=== PATIENT | male | born 1930 | race Caucasian/White ===

== ENCOUNTER → 2016-06-06 | Outpatient (CLI) | payer OTHER ==
[~2016-06-06] MED LIST: AMOX1TAB43 PO; ASPI-232 PO; ATEN-173 PO; FLM4 PO; MISCTAB88 PO; PANT40TA PO; PRAV20TA PO; PRT40 PO; SALI0.6510; ZCRT/40 PO; ZNT150 PO; ZNTT/150 PO
[2016-06-06 14:08] VITALS: BP 130/72; PULSE 55; TEMP 36.6; O2SAT 98
--- NOTE | 2016-06-06 15:29 | Radiation Oncology Follow-Up ---
Radiation Oncology Follow-Up Date of Visit Jun 06, 2016. 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 Briefly he is an 84-year-old male was initially seen in May 2012 with a rise in prostate-specific antigen from 5. 08/18/2009 to 8.89 in February 2012. He underwent ultrasound-guided biopsies with 3 biopsies positive in the right base for a Mobile grade of 3+4 with a Mobile grade 4 comprising 5% of the tumor burden. 3 biopsies were positive from the right mid gland for a Galindo grade of 3+3 thus a total of 6 of 20 biopsies were positive. His estimated gland size was between 50 and 60 g. At that time he was felt to be too large to consider prostate implant. Options were discussed including active surveillance for possible attempt to shrink his gland for consideration of prostate seed implant. The patient received a four-month Lupron injection on 06/21/2012. The patient underwent an arch study on 09/24/2012 for determining the probability of arch interference. The estimated gland volume was 45 g however the arch was tight and an implant was not recommended. On 05/01/2013 the patient underwent a repeat ultrasound-guided prostate biopsy. 2 biopsies from the right base were positive for adenocarcinoma Galindo grade of 3+3. One biopsy was positive from right mid gland for Mobile grade 3+3 with no Mobile 4 identified. A repeat arch study was performed on 05/22/2013 surprisingly is prostate volume was estimated at 64 g and begin his arch is appeared tight and an implant was not thought to be possible. Decision at that time was to continue with active surveillance. A repeat prostate-specific antigen following cessation of his Lupron suppression on 02/03/2014 showed a value of 9.7. This is not significantly different than his presenting prostate-specific antigen in February 2012 at 8.89. The patient however became concerned and presented to Dr. Elder's office and stated that he wanted to receive treatment. A four-month Lupron injection was given on March 05 and an arch study was scheduled for 2014. The most recent arch study showed a decrease in the volume of the prostate to 50 g. 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 I asked the patient to return today to discuss treatment options. I spent about 30 minutes in discussion with Mr. Russo. We reviewed the option of continued hormonal suppression and ultimately repeat arch studies and the possibility of a prostate seed implant at some point in the future. We also discussed the alternative option of continuing active surveillance. Given his age of 84 and his relatively low aggressive disease I suggested that he consider active surveillance. I told him that once his Lupron has worn off that we could arrange for a repeat prostate-specific antigen and follow it after that every 6 months. I indicated to him that with this follow-up schedule that we would be able to obtain a fairly good understanding of the growth rate of his cancer and based on this information determine whether to continue with active surveillance or possibly consider treatment at some point in the future. I told him that I felt it was very unlikely that he would of his prostate cancer and also very unlikely that he would have significant symptoms from progressive prostate cancer even if he were to live into his early to mid 90s. The patient felt comfortable with this decision to continue with active surveillance. With his consent therefore we contacted Dr. Elder's office and canceled the scheduled prostate seed implant from June. We will repeat his prostate-specific antigen in September and will see him in follow-up and continue with active surveillance. The patient therefore underwent a repeat prostate- specific antigen performed on 09/30/2014. This showed a prostate-specific antigen of 0.44. This undoubtedly is a persistent effect of his prostate- specific antigen suppression based on his Lupron injection. He received his most recent Lupron injection in February of this year for 4 months. Because of his age he is likely having persistent suppressive effects and thus a very responsive drop in prostate-specific antigen. Overall he continues to do extremely well. His AUA score remains excellent at 7. His EPIC-CP score was also excellent at 9. He denies any other bowel symptoms. He remains active and is feeling great with no significant symptoms of hormonal suppression. Interim History Patient returns today for 6 month follow-up. He had a recheck PSA at [facility] on 05/29/2016. The report was 10.30. The prior PSA 2015 was 10.200. He continues to have an excellent AUA score at 2. He completed and expanded prostate cancer index composite for clinical practice and gave a score of 1 of 12 in urinary incontinence symptoms. He gave a score of 1 of 12 in urinary irritation symptoms. He gave a score of 0 of 12 in bowel symptoms. He gave a score of 4 of 12 and sexual symptoms. He gave a score of 0 of 12 and hormonal vitality symptoms. His total was 6 of 60. Allergies Coded Allergies: No Known Allergies (Unverified , 05/14/12) Home Medications Scheduled Aspirin (Aspir-81), 1 TAB PO DAILY Atenolol (Tenormin), 25 MG PO DAILY Misc Natural Products (Osteo Bi-Flex Triple Stre), 1 TAB PO DAILY Simvastatin (Zocor), 40 MG PO QPM Tamsulosin HCl (Tamsulosin HCl), 0.4 MG PO DAILY Review of Systems Gastrointestinal: Symptoms: WNL Oral: Symptoms: No Problems Respiratory: Symptoms: WNL Urinary: Symptoms: WNL, Nocturia Comments: Nocturia x 1-2, See AUA & EPIC Skin: Other Skin Symptoms: N/A Physical Exam Vital Signs Date Time Temp Pulse Resp B/P Pulse Ox O2 Delivery O2 Flow Rate FiO2 06/06/16 14:08 36.6 55 14 130/72 98 Fatigue: None General Appearance: no apparent distress Eyes: normal inspection, EOMI ENT: normal ENT inspection, hearing grossly normal Neck: no adenopathy, thyroid normal Respiratory/Chest: lungs clear, no respiratory distress, no accessory muscle use Cardiovascular: regular rate, rhythm, no gallop, no murmur Extremities: no pedal edema Neurologic/Psychiatric: no motor/sensory deficits, alert, normal mood/affect Skin: warm/dry Laboratory Studies PSAs as reviewed above. Assessment & Plan Plan: Patient was seen also today by Dr. Rubin. We reviewed with him the most recent PSAs. Patient has been followed on active surveillance since 2013. He is satisfied to continue on active surveillance at this time with his PSA being stable levels. He did wish to continue follow-up with our office. We therefore ask him to return to our office in 6 months. An order was given to have a PSA obtained prior to his visit. This is more convenient for him tabs performed at [facility]. He may call our office if he has be questions or concerns in the interim. Total Time In Follow-Up I spent 20 minutes speaking to the patient and performing examination. I spent 15 minutes reviewing information and completing this note. Copy To Geraldo Villalta M.D.
== END | disposition home or self-care (01) ==
LOC: C.ONC 14:01
PROVIDERS: ATTEND Physician Assistant Medical
DX: Z08 Encounter for follow-up examination after completed treatment for malignant neoplasm (principal); Z92.3 Personal history of irradiation; Z85.46 Personal history of malignant neoplasm of prostate

== ENCOUNTER 2016-11-04 17:01 | Inpatient (IN) | payer OTHER ==
[~2016-11-04] VITALS: Ht 182.9 cm; Wt 68.6 kg
[~2016-11-04 17:01] MED LIST changes: -AMOX1TAB43 PO; -PANT40TA PO; -PRAV20TA PO; -PRT40 PO; -SALI0.6510; -ZNT150 PO; -ZNTT/150 PO
[2016-11-04] MEDS ORDERED: SODIUM CHLORIDE 0.9% 1000ML 1,000 ML IV STA (17:18)
[2016-11-04] MEDS ORDERED: XYLOCAINE 1%/SOD BICARB 20 ML VIAL INFIL STA (17:30)
[2016-11-04 17:44] LABS: BASO % 0.1 %; BASO ABS # 0.01 K/uL (0-0.2); COMPLETE YES; EOS % 0.1 %; HEMATOCRIT 33.1 % (42-52); IG% 0.8 %; LYMPH % 6.7 %; LYMPH ABS # 0.81 K/uL (1.2-3.4); MEAN CELL VOLUME 95.1 fL (80-100); MEAN CORPUSCULAR HEMOGLOBIN 31.9 pg (25-34); MEAN CORPUSCULAR HGB CONC 33.5 g/dl (32-36); MEAN PLATELET VOLUME 9.7 fL (7.4-10.4); MONO % 3.6 %; NEUT % 88.7 %; PLATELET COUNT 124 K/uL (130-400); RED BLOOD COUNT 3.48 M/uL (4.7-6.1)
[2016-11-04 17:52] LABS: PARTIAL THROMBOPLASTIN RATIO 0.7; PROTHROMBIN TIME (PATIENT) 10.5 SECONDS (9.0-12.0)
[2016-11-04 17:54] LABS: ISTAT CREATININE 1.4 mg/dl (0.6-1.3); ISTAT HEMOGLOBIN 10.5 g/dl (14.0-18.0); ISTAT IONIZED CALCIUM 1.28 mmol/l (1.12-1.32)
[2016-11-04] MEDS ORDERED: PANTOprazole INJ 80 MG in DEXTROSE 5% 100ML IV ONE (18:00)
[2016-11-04 18:08] LABS: ALT/SGPT 17 U/L (12-78); BLOOD UREA NITROGEN 53 mg/dl (7-18); BUN/CREATININE RATIO 40.5 (10-20); CALCIUM 8.8 mg/dl (8.5-10.1); CARBON DIOXIDE 22 mmol/L (21-32); CHLORIDE 110 mmol/L (98-107); GLUCOSE 131 mg/dl (70-99); SODIUM 142 mmol/L (136-145)
[2016-11-04 18:14] LABS: ALKALINE PHOSPHATASE 55 U/L (45-117); AST/SGOT 16 U/L (15-37); CKMB/CK RATIO 4.2 (0-3.0)
[2016-11-04] MEDS ORDERED: PANTOprazole INJ 40 MG in DEXTROSE 5% 100ML IV SCH (18:15)
--- NOTE | 2016-11-04 18:26 | EMERGENCY ROOM VISIT NOTE ---
History Report prepared by Dimas: Tania Palmer Under the Supervision of: Dr. Carloz Barth M.D. First contact with patient: 17:17 Chief Complaint: FALL Stated Complaint: FELL,BLOOD IN STOOL,CONCUSSION History of Present Illness The patient is an 86 year old male who presents to the Emergency Room with complaints of an episode of a fall occurring prior to arrival. The patient states that he was dizzy and nauseous last night. He states that this morning when he went to the bathroom his stool was extremely dark. The patient states that he decided to come to the hospital for it. He states as he was walking up the hill to his car from his boat that he lives on, he passed out. According to his son, he was disoriented and didn't remember taking his to the airport 5 days ago. The patient denies ever passing out before and remembering if there was a warning before passing out. The patient complains of a sore shoulder from the fall. The patient denies abdominal pain. Source of History: patient Onset: prior to arrival Position: other (global) Quality: other (global) Timing: other (episode) Associated Symptoms: + nausea, + melena, No abdominal pain Note: The patient complains of dizziness and a sore shoulder. The son notes he was disoriented. Review of Systems See HPI for pertinent positives & negatives. A total of 10 systems reviewed and were otherwise negative. 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 Social History Smoking Status: Never Smoker Alcohol Use: none Drug Use: none Marital Status: Housing Status: lives with significant other Occupation Status: unemployed Current/Historical Medications Scheduled Aspirin (Aspir-81), 1 TAB PO DAILY Atenolol (Tenormin), 25 MG PO DAILY Misc Natural Products (Osteo Bi-Flex Triple Stre), 1 TAB PO DAILY Simvastatin (Zocor), 40 MG PO QPM Tamsulosin HCl (Tamsulosin HCl), 0.4 MG PO QPM Allergies Coded Allergies: No Known Allergies (Unverified , 11/04/16) Physical Exam Vital Signs Date Time Temp Pulse Resp B/P (MAP) Pulse Ox O2 Delivery O2 Flow Rate FiO2 11/04/16 20:00 81 14 122/73 98 Room Air 11/04/16 19:42 Room Air 11/04/16 19:30 82 22 99 11/04/16 19:09 85 11/04/16 19:00 79 19 100 11/04/16 18:28 84 18 127/78 99 Room Air 11/04/16 17:40 Room Air 11/04/16 17:06 36.4 84 16 119/68 100 Room Air Physical Exam GENERAL: Patient is a healthy-appearing well-nourished HEAD: Normocephalic. Laceration superior to right eye 2.6 cm in length. EYES: Ocular movements intact pupils equal and react to light OROPHARYNX mucous membranes are moist no exudates present no erythema or edema present NECK: Supple no nuchal rigidity CHEST: Good equal expansion LUNGS: Clear and equal to auscultation CARDIAC: Normal S1 and S2 ABDOMEN: Soft nontender no guarding BACK: No CVA tenderness EXTREMITIES: No pain upon palpation normal muscle strength in all groups no clubbing cyanosis or edema. Skin avulsion to right elbow that is not suturable. NEURO: Patient is following commands and answering questions appropriately. Alert and oriented x3 Cranial Nerves 2-12 grossly intact Medical Decision & Procedures ER Provider Diagnostic Interpretation: Radiology results as stated below per my review and radiologist interpretation: MAXILLOFACIAL CT CT DOSE: HISTORY: Pt c/o Rt facial pain TECHNIQUE: Multiaxial CT images of the maxillofacial region were performed and reformatted in the coronal plane without the use of contrast. A dose lowering technique was utilized adhering to the principles of ALARA. COMPARISON: None. FINDINGS: The visualized cervical spine, skull base, zygomatic arches, mandible, left orbital floor, and lamina papyracea are intact. No fractures within the nasal bones. The globes and retrobulbar fat are intact. Right periorbital soft tissue swelling. Focal subcutaneous calcification within the left infraorbital location. There is hemorrhage within the right maxillary sinus. Retention cyst within the left maxillary sinus. A few opacified ethmoid air cells. Nondisplaced right orbital floor fracture. Trace extraconal gas on the right. No evidence for herniation of the intraorbital contents. IMPRESSION: Nondisplaced right orbital floor fracture. Right periorbital soft tissue swelling at Electronically signed by: Oh Pineda M.D. 11/04/2016 6:33 PM Dictated Date/Time: 11/04/2016 6:[address] CT DOSE: 910.87 mGy.cm HISTORY: Pt c/o syncopal episode TECHNIQUE: Multiaxial CT images of the head were performed without the use of intravenous contrast. Automated exposure control was utilized for this study. A dose lowering technique was utilized adhering to the principles of ALARA. Comparison: None. Findings: The mastoid air cells are clear. A few partially opacified ethmoid air cells. Mild motion artifact. The calvarium and skull base are intact. The ventricles and sulci are within normal limits. There is no mass, hematoma, midline shift, or acute infarct. 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 Mild microvascular ischemic changes. Impression: Mild motion artifact. No definite acute intracranial abnormality. Electronically signed by: Oh Pineda M.D. 11/04/2016 6:29 PM Dictated Date/Time: 11/04/2016 6:26 PM RIGHT SHOULDER 2 VIEWS HISTORY: Pt c/o Rt shoulder pain COMPARISON: None. FINDINGS: There is no fracture or dislocation. The right clavicle is intact. Focal swelling superior to the AC joint may be due to chronic rotator cuff injury. No radiopaque foreign bodies. IMPRESSION: No fracture or dislocation within the right shoulder. Electronically signed by: Oh Pineda M.D. 11/04/2016 6:35 PM Dictated Date/Time: 11/04/2016 6:34 PM CHEST ONE VIEW PORTABLE HISTORY: Pt c/o fall COMPARISON: None. FINDINGS: The lungs are clear. Cardiac silhouette is normal in size. No pleural effusions. No pneumothorax. IMPRESSION: No acute process. Electronically signed by: Oh Pineda M.D. 11/04/2016 6:36 PM Dictated Date/Time: 11/04/2016 6:35 PM Laboratory Results Test 11/04/16 17:29 11/04/16 17:41 Prothrombin Time 10.5 SECONDS (9.0-12.0) Prothromb Time International Ratio 1.0 (0.9-1.1) Activated Partial Thromboplast Time 19.4 SECONDS (21.0-31.0) Partial Thromboplastin Ratio 0.7 Total Bilirubin 0.4 mg/dl (0.2-1) Direct Bilirubin 0.1 mg/dl (0-0.2) Aspartate Amino Transf (AST/SGOT) 16 U/L (15-37) Alanine Aminotransferase (ALT/SGPT) 17 U/L (12-78) Alkaline Phosphatase 55 U/L (45-117) Total Protein 6.7 gm/dl (6.4-8.2) Albumin 3.6 gm/dl (3.4-5.0) Lipase 153 U/L (73-393) Bedside Hemoglobin 10.5 g/dl (14.0-18.0) Bedside Hematocrit 31 % (42-52) Bedside Sodium 142 mEq/L (135-144) Bedside Potassium 4.0 mEq/L (3.3-5.0) Bedside Chloride 107 mEq/L (101-112) Bedside Total CO2 22 mEq/l (24-31) Bedside Blood Urea Nitrogen 48 mg/dl (7-18) Bedside Creatinine 1.4 mg/dl (0.6-1.3) Bedside Glucose (other) 134 mg/dl (70-99) Bedside Ionized Calcium (Windy) 1.28 mmol/l (1.12-1.32) Labs reviewed by ED physician. Medications Administered Medications (Trade) Dose Ordered Sig/William Route Start Time Stop Time Status Last Admin Dose Admin Sodium Chloride 1,000 ml @ 999 mls/hr Q1H1M STAT IV 11/04/16 17:18 11/04/16 18:18 DC 11/04/16 17:47 999 MLS/HR Pantoprazole Sodium (Protonix IV Bolus/Drip) 1 ea NOW STAT IV 11/04/16 17:44 11/04/16 17:45 DC 11/04/16 18:27 1 EA Pantoprazole Sodium 80 mg/ Dextrose 120 ml @ 480 mls/hr NOW ONCE IV 11/04/16 18:00 11/04/16 18:14 DC 11/04/16 18:26 480 MLS/HR Pantoprazole Sodium 40 mg/ Dextrose 100 ml @ 20 mls/hr Q5H IV 11/04/16 18:15 11/04/16 23:14 DC 11/04/16 18:27 20 MLS/HR Diphtheria/ Pertussis/Tetanus Vacc (Adacel Inj) 0.5 ml ONCE ONCE IM. 11/04/16 19:30 11/04/16 19:31 DC 11/04/16 20:07 0.5 ML Procedure Location: right eye Total length: 2.6 cm Complexity: simple linear Verbal consent was obtained after the risks and benefits were explained, including but not limited to bleeding, scarring, infection, pain, and bone/joint /nerve damage. At this time, the risks of the procedure are less than the risks of NOT performing the procedure. A time out was taken and the correct patient and site identified. The skin was prepped with betadine. The target area was anesthetized with 4 ml of 1% lidocaine without epinephrine. Copious irrigation was performed using 500 cc normal saline. The skin was re-prepped with betadine and a sterile field set. The wound was explored for foreign bodies and none found. Examination revealed no injury to deep structures such as tendons, bone, or significant blood vessels. Debridement was not performed. The wound edges were approximated using 2, 5-0 simple interrupted nylon sutures. Hemostasis and excellent approximation was achieved. Antibacterial ointment and a sterile dressing applied. Detailed wound care instructions and signs and symptoms of infection reviewed with the patient. No complications and the patient tolerated the procedure well. ECG Indication: syncope Rate (beats per minute): 82 Rhythm: normal sinus Findings: no acute ischemic change, left axis deviation ED Course 1718: Ordered NSS 1000 ml @ 999 mls/hr IV. 1720: Past medical records reviewed. The patient was evaluated in room B12B. A complete history and physical examination was performed. 1730: Ordered Lidocaine HCl 20 ml INFIL. 1744: Ordered Pantoprazole Sodium 1 ea IV. 1800: Ordered Pantoprazole Sodium 80 mg/ Dextrose 120 ml @ 480 mls/hr IV. 1815: Ordered Pantoprazole Sodium 40 mg/ Dextrose 100 ml @ 20 mls/hr IV. 1928: I discussed the patient's case with Dr. Marion, he has agreed to evaluate the patient for further management and care. 1930: Ordered Adacel Inj 0.5 ml IM. Medical Decision Etiologies such as diverticulosis, AVM, coagulopathy, colitis, inflammatory bowel disease, malignancy, Malinda-Wilder tear, esophagitis, peptic ulcer disease , variceal bleed, gastritis, epistaxis, fissure, hemorrhoids, as well as others were entertained. This is an 86-year-old male who presents emergency department complaining of syncopal episode. The patient is also complaining of black tarry stools. He is heme positive on examination. For this reason he was started on Protonix bolus and drip. The patient had facial lacerations were repaired as above. He does have an orbital floor fracture however has no evidence of entrapment of the muscle. He has good range of motion of his eye. Based on these findings as well as the syncope in relation to a GI bleed I felt that the patient would benefit from an admission. I did discuss the case with the hospitalist staff who agreed to treat the patient. Medication Reconcilliation Current Medication List: was personally reviewed by me Blood Pressure Screening Patient's blood pressure: Normal blood pressure Blood pressure disposition: Did not require urgent referral Consults Time Called: 1919 Consulting Physician: Dr. Marion Returned Call: 1927 I discussed the patient's case with Dr. Marion, he has agreed to evaluate the patient for further management and care. Impression Primary Impression: GI bleed Additional Impressions: Syncope Facial fracture Scribe Attestation The scribe's documentation has been prepared under my direction and personally reviewed by me in its entirety. I confirm that the note above accurately reflects all work, treatment, procedures, and medical decision making performed by me. Departure Information Dispostion Being Evaluated By Hospitalist Referrals Geraldo Villalta M.D. (PCP) Patient Instructions My [facility] Problem Qualifiers Primary Impression: GI bleed GI bleed type/associated pathology: unspecified gastrointestinal hemorrhage type Qualified Codes: K92.2 - Gastrointestinal hemorrhage, unspecified Additional Impressions: Syncope Syncope type: unspecified Qualified Codes: R55 - Syncope and collapse Facial fracture Encounter type: initial encounter Facial bone/location: orbital floor Fracture type: closed Laterality: right Qualified Codes: S02.31XA - Fracture of orbital floor, right side, initial encounter for closed fracture
--- NOTE | 2016-11-04 18:30 | DIAGNOSTIC IMAGING REPORT ---
HEAD CT NONCONTRAST CT DOSE: 910.87 mGy.cm HISTORY: Pt c/o syncopal episode TECHNIQUE: Multiaxial CT images of the head were performed without the use of intravenous contrast. Automated exposure control was utilized for this study. A dose lowering technique was utilized adhering to the principles of ALARA. Comparison: None. Findings: The mastoid air cells are clear. A few partially opacified ethmoid air cells. Mild motion artifact. The calvarium and skull base are intact. The ventricles and sulci are within normal limits. There is no mass, hematoma, midline shift, or acute infarct. 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 Mild microvascular ischemic changes. Impression: Mild motion artifact. No definite acute intracranial abnormality. Electronically signed by: Oh Pineda M.D. 11/04/2016 6:29 PM Dictated Date/Time: 11/04/2016 6:26 PM
--- NOTE | 2016-11-04 18:35 | DIAGNOSTIC IMAGING REPORT ---
MAXILLOFACIAL CT CT DOSE: HISTORY: Pt c/o Rt facial pain TECHNIQUE: Multiaxial CT images of the maxillofacial region were performed and reformatted in the coronal plane without the use of contrast. A dose lowering technique was utilized adhering to the principles of ALARA. COMPARISON: None. FINDINGS: The visualized cervical spine, skull base, zygomatic arches, mandible, left orbital floor, and lamina papyracea are intact. No fractures within the nasal bones. The globes and retrobulbar fat are intact. Right periorbital soft tissue swelling. Focal subcutaneous calcification within the left infraorbital location. There is hemorrhage within the right maxillary sinus. Retention cyst within the left maxillary sinus. A few opacified ethmoid air cells. Nondisplaced right orbital floor fracture. Trace extraconal gas on the right. No evidence for herniation of the intraorbital contents. IMPRESSION: Nondisplaced right orbital floor fracture. Right periorbital soft tissue swelling at Electronically signed by: Oh Pineda M.D. 11/04/2016 6:33 PM Dictated Date/Time: 11/04/2016 6:29 PM
--- NOTE | 2016-11-04 18:36 | DIAGNOSTIC IMAGING REPORT ---
RIGHT SHOULDER 2 VIEWS HISTORY: Pt c/o Rt shoulder pain COMPARISON: None. FINDINGS: There is no fracture or dislocation. The right clavicle is intact. Focal swelling superior to the AC joint may be due to chronic rotator cuff injury. No radiopaque foreign bodies. IMPRESSION: No fracture or dislocation within the right shoulder. Electronically signed by: Oh Pineda M.D. 11/04/2016 6:35 PM Dictated Date/Time: 11/04/2016 6:34 PM
--- NOTE | 2016-11-04 18:37 | DIAGNOSTIC IMAGING REPORT ---
CHEST ONE VIEW PORTABLE HISTORY: Pt c/o fall COMPARISON: None. FINDINGS: The lungs are clear. Cardiac silhouette is normal in size. No pleural effusions. No pneumothorax. IMPRESSION: No acute process. Electronically signed by: Oh Pineda M.D. 11/04/2016 6:36 PM Dictated Date/Time: 11/04/2016 6:35 PM
[2016-11-04] MEDS ORDERED: DIPHTHERIA/TETANUS/PERTUSSIS 0.5 ML SYR/VIAL IM. ONE (19:30)
--- NOTE | 2016-11-04 19:30 | History and Physical ---
History & Physical Date & Time of Service: Nov 04, 2016 at 19:03 Chief Complaint: Fell,Blood In Stool,Concussion Primary Care Physician: Geraldo Villalta M.D. History of Present Illness Source: patient, family 86M with a PMHx of prostate cancer treated with Tamsulosin presents status post a fall earlier this afternoon. He presents with his son who was on the scene approximately 10 min after the fall. The fall was unwitnessed, however a neighbor found the patient soon after. He was placed on a chair after which he was groggy. The patient does not remember the fall, the last thing he remembers is walking to his car and he remembers coming to in the chair. The patient was on his way to the hospital for black boggy stools x 1. He reports feeling light headed the evening before. At the time of the fall the temp was approx 94F and the pt states that it's possible he was dehydrated. Pt reports that his stools are usually brown. He does report a mechanical fall approximately two weeks ago, other than that no other falls. Otherwise he describes his general health as good. Last colonoscopy was 8 years ago - nothing remarkable. No family history of colon cancer. Non smoker. He does have prostate cancer that he has elected for conservative management with. Sees Dr. Rubin for that. Pt does take a daily Aspirin. As a history of peptic ulcers 30+ years ago. Used to take intermittent Zantac for heartburn - hasn't had heartburn in many years. ROS: No chest pain, no SOB, no dyspnea on exertion, no palpitations, no fevers, no chills, no nausea, no vomiting, no diarrhea, no dysuria, no rash. PMHx: Prostate Cancer. Meds: ASA 81, Atenolol 25, Zocor 40, Tamsulosin SHx: , is traveling back to [place] for the next 4 weeks. Family History Patient reports no known family medical history. Social History Smoking Status: Never Smoker Smokeless Tobacco Use: No Alcohol Use: none Drug Use: none Marital Status: Housing status: lives with family Occupational Status: unemployed Immunizations History of Influenza Vaccine: Unknown History of Tetanus Vaccine?: Unknown History of Pneumococcal: Unknown History of Hepatitis B Vaccine: Unknown Multi-Drug Resistant Organisms History of MDRO: No Allergies Coded Allergies: No Known Allergies (Unverified , 11/04/16) Home Medications Scheduled Aspirin (Aspir-81), 1 TAB PO DAILY Atenolol (Tenormin), 25 MG PO DAILY Misc Natural Products (Osteo Bi-Flex Triple Stre), 1 TAB PO DAILY Simvastatin (Zocor), 40 MG PO QPM Tamsulosin HCl (Tamsulosin HCl), 0.4 MG PO QPM Review of Systems Constitutional: No fever, No chills, No weight loss, No weakness Respiratory: No cough, No sputum, No wheezing, No shortness of breath Cardiovascular: No chest pain Abdomen: + GI bleeding, No pain, No nausea, No vomiting, No diarrhea, No constipation Musculoskeletal: No joint pain, No muscle pain Genitourinary - Male: No hematuria, No dysuria Neurologic: No memory loss Psychiatric: No depression symptoms, No anxiety Integumentary: No rash Physical Exam Vital Signs Date Time Temp Pulse Resp B/P (MAP) Pulse Ox O2 Delivery O2 Flow Rate FiO2 11/04/16 18:28 84 18 127/78 99 Room Air 11/04/16 17:40 Room Air 11/04/16 17:06 36.4 84 16 119/68 100 Room Air General Appearance: WD/WN, no apparent distress Head: normocephalic Neck: supple, no JVD, no carotid bruits Respiratory/Chest: chest non-tender, lungs clear, normal breath sounds, no respiratory distress, no accessory muscle use Cardiovascular: regular rate, rhythm, no edema, no gallop, no JVD, no murmur, normal peripheral pulses Abdomen/GI: normal bowel sounds, non tender, soft, no organomegaly, no pulsatile mass, + fecal occult blood (positive) Genitourinary - Male: normal male genitalia Back: normal inspection, no CVA tenderness, no muscle spasm Extremities/Musculoskelatal: normal inspection, no calf tenderness, no pedal edema, normal range of motion, non-tender Neurologic/Psych: no motor/sensory deficits, alert, normal mood/affect, oriented x 3 Skin: normal color, warm/dry, no rash, + pertinent finding (Laceration superior to right eye approx 3cm in length. Right elbow abrasion. Small cut over the glabella. ) Diagnostics Laboratory Results Results Past 24 Hours Test 11/04/16 17:29 11/04/16 17:41 Range/Units White Blood Count 12.10 4.8-10.8 K/uL Red Blood Count 3.48 4.7-6.1 M/uL Hemoglobin 11.1 14.0-18.0 g/dL Hematocrit 33.1 42-52 % Mean Corpuscular Volume 95.1 80-100 fL Mean Corpuscular Hemoglobin 31.9 25-34 pg Mean Corpuscular Hemoglobin Concent 33.5 32-36 g/dl Platelet Count 124 130-400 K/uL Mean Platelet Volume 9.7 7.4-10.4 fL Neutrophils (%) (Auto) 88.7 % Lymphocytes (%) (Auto) 6.7 % Monocytes (%) (Auto) 3.6 % Eosinophils (%) (Auto) 0.1 % Basophils (%) (Auto) 0.1 % Neutrophils # (Auto) 10.73 1.4-6.5 K/uL Lymphocytes # (Auto) 0.81 1.2-3.4 K/uL Monocytes # (Auto) 0.44 0.11-0.59 K/uL Eosinophils # (Auto) 0.01 0-0.5 K/uL Basophils # (Auto) 0.01 0-0.2 K/uL RDW Standard Deviation 46.1 36.4-46.3 fL RDW Coefficient of Variation 13.4 11.5-14.5 % Immature Granulocyte % (Auto) 0.8 % Immature Granulocyte # (Auto) 0.10 0.00-0.02 K/uL Prothrombin Time 10.5 9.0-12.0 SECONDS Prothromb Time International Ratio 1.0 0.9-1.1 Activated Partial Thromboplast Time 19.4 21.0-31.0 SECONDS Partial Thromboplastin Ratio 0.7 Sodium Level 142 136-145 mmol/L Potassium Level 4.0 3.5-5.1 mmol/L Chloride Level 110 98-107 mmol/L Carbon Dioxide Level 22 21-32 mmol/L Anion Gap 10.0 18.0 16-25 mmol/L Blood Urea Nitrogen 53 7-18 mg/dl Creatinine 1.30 0.60-1.40 mg/dl Est Creatinine Clear Calc Drug Dose 37.2 ml/min Estimated GFR () 56.5 Estimated GFR (Non- 48.7 BUN/Creatinine Ratio 40.5 10-20 Random Glucose 131 70-99 mg/dl Calcium Level 8.8 8.5-10.1 mg/dl Total Bilirubin 0.4 0.2-1 mg/dl Direct Bilirubin 0.1 0-0.2 mg/dl Aspartate Amino Transf (AST/SGOT) 16 15-37 U/L Alanine Aminotransferase (ALT/SGPT) 17 12-78 U/L Alkaline Phosphatase 55 45-117 U/L Total Creatine Kinase 99 39-308 U/L Creatine Kinase MB 4.2 0.5-3.6 ng/ml Creatine Kinase MB Ratio 4.2 0-3.0 Troponin I < 0.015 0-0.045 ng/ml Total Protein 6.7 6.4-8.2 gm/dl Albumin 3.6 3.4-5.0 gm/dl Lipase 153 73-393 U/L Bedside Hemoglobin 10.5 14.0-18.0 g/dl Bedside Hematocrit 31 42-52 % Bedside Sodium 142 135-144 mEq/L Bedside Potassium 4.0 3.3-5.0 mEq/L Bedside Chloride 107 101-112 mEq/L Bedside Total CO2 22 24-31 mEq/l Bedside Blood Urea Nitrogen 48 7-18 mg/dl Bedside Creatinine 1.4 0.6-1.3 mg/dl Bedside Glucose (other) 134 70-99 mg/dl Bedside Ionized Calcium (Windy) 1.28 1.12-1.32 mmol/l Diagnostic Radiology CHEST ONE VIEW PORTABLE HISTORY: Pt c/o fall COMPARISON: None. FINDINGS: The lungs are clear. Cardiac silhouette is normal in size. No pleural effusions. No pneumothorax. IMPRESSION: No acute process. RIGHT SHOULDER 2 VIEWS HISTORY: Pt c/o Rt shoulder pain COMPARISON: None. FINDINGS: There is no fracture or dislocation. The right clavicle is intact. Focal swelling superior to the AC joint may be due to chronic rotator cuff injury. No radiopaque foreign bodies. IMPRESSION: No fracture or dislocation within the right shoulder. HEAD CT NONCONTRAST CT DOSE: 910.87 mGy.cm HISTORY: Pt c/o syncopal episode TECHNIQUE: Multiaxial CT images of the head were performed without the use of intravenous contrast. Automated exposure control was utilized for this study. A dose lowering technique was utilized adhering to the principles of ALARA. Comparison: None. Findings: The mastoid air cells are clear. A few partially opacified ethmoid air cells. Mild motion artifact. The calvarium and skull base are intact. The ventricles and sulci are within normal limits. There is no mass, hematoma, midline shift, or acute infarct. 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 Mild microvascular ischemic changes. Impression: Mild motion artifact. No definite acute intracranial abnormality. MAXILLOFACIAL CT CT DOSE: HISTORY: Pt c/o Rt facial pain TECHNIQUE: Multiaxial CT images of the maxillofacial region were performed and reformatted in the coronal plane without the use of contrast. A dose lowering technique was utilized adhering to the principles of ALARA. COMPARISON: None. FINDINGS: The visualized cervical spine, skull base, zygomatic arches, mandible, left orbital floor, and lamina papyracea are intact. No fractures within the nasal bones. The globes and retrobulbar fat are intact. Right periorbital soft tissue swelling. Focal subcutaneous calcification within the left infraorbital location. There is hemorrhage within the right maxillary sinus. Retention cyst within the left maxillary sinus. A few opacified ethmoid air cells. Nondisplaced right orbital floor fracture. Trace extraconal gas on the right. No evidence for herniation of the intraorbital contents. IMPRESSION: Nondisplaced right orbital floor fracture. Right periorbital soft tissue swelling at EKG Sinus Rhythm was aberrant conduction with PACs Impression Assessment and Plan 86M with a PMHx of prostate cancer presents status post fall after an episode of black tarry stools. Vagal vs Cardiogenic. CT scan of the head and sinus showed a non displaced right orbital bone fracture. We are making NPO with a PPI drip + Ranitidine. GI consulted. ENT (Dr. Da Silva) consulted. Admitted to tele. Echo ordered. Will trend Trops. Syncope, Vagal vs Cardiac - CT Head normal. - Will admit to tele. - Ordered an echo. - Trops neg x 1, will trend. - Will order Neurochecks per protocol. - Will order PT and OT. - Follow up Mag and Phos and replete as necessary. Melena, possible contributor to fall complicated by history of Prostate Ca ( managed conservatively) - ROS +'ve for Melena, Hemoglobin was 33. - Last colonoscopy was 8years ago. - Will make patient NPO except meds and ice chips. - PPI Drip + Ranitidine. - D5W+1/2NSS + 20meq KCL at 125mls/hr. - Will hold the ASA. - CT Scan Abdo and Pelvis w and w/o IV contrast. - GI (Dr. Ogden) consulted. Nondisplaced right orbital floor fracture - I put in an ENT consult with Dr. Da Silva. - Skin laceration over right eye sutured by Dr. Barth. - Started Augmentin 875mg BID PO. H/o Prostate cancer (sees Dr. Rubin) - managing conservatively - Continue Tamsulosin 0.4mg QPM. - CT Abdomen of the Pelvis in 2012 unremarkable, will order repeat CT Abdo and Pelvis to rule out mets causing the hematochezia. HLD / HTN - Will resume Home meds Atenolol 25mg daily and Simvastatin 40mg daily. Endo - Blood Sugars slightly elevated. Will order HBA1C. ID - WBC elevation likely reactive. Augmentin as above for possible skin infections. DVT Proph: SCDs, no AC due to possible GI bleed. Dispo - Tele, NPO except meds and ice chips. Full Code Attending Addendum: I have physically seen and examined this patient, have directed the resident's medical activities, and agree with the H&P as noted above with the following exceptions as noted. The patient is awake, alert and oriented 3, well-developed and well-nourished , laceration over right eye with ecchymosis over right zygomatic arch area and right outer canthus, lying in bed and in no acute distress. HEENT--PERRL, EOMI, mucous membranes and oropharynx dry. Neck--supple, no JVD or bruits, thyroid normal, trachea midline, no adenopathy. Heart--normal S1 and S2, no extra beats, no murmurs, rubs or gallops. Lungs--clear bilaterally with good air movement, no respiratory distress, no accessory muscle use. Abdomen--normal bowel sounds and soft, nontender and nondistended, no hernias or masses, no organomegaly. Extremities--no cyanosis, clubbing or edema. There are good distal pulses b/l. Dermatologic--skin changes as described above, along with right elbow abrasion and right hand third and fourth digits. Neurologic--cranial nerves II through XII grossly intact.. Rheumatologic--normal range of motion normal except right shoulder joint mildly diminished due to pain. Psychiatric--normal affect. Assessment and Plan: Syncope-- The patient will be admitted to telemetry for serial cardiac enzymes, cardiac rhythm monitoring and a 2-D echocardiogram with Dopplers. Neurochecks every 4 hours for the next 12 hours. Consult PT/OT and social economist. Continue atenolol 25 mg by mouth daily with hold parameters. Melena-- Serial H&H's. Nothing by mouth except medications and ice chips. Protonix drip. D5 half-normal saline with KCl 20 mEq 125 ML's per hour. Consult gastroenterology Nondisplaced Right orbital floor fracture/hemorrhage in to right maxillary sinus -- Arrange follow-up in an outpatient setting with Dr. Da Silva. Augmentin 875 mg by mouth twice a day. Level of Care Telemetry Advanced Directives Existing Advance Directive: No Existing Living Will: No Existing Power of Tub Attendant: No Resuscitation Status FULL RESUSCITATION VTE Prophylaxis VTE Risk Assessment Done? Y/N: Yes Given or contraindicated: SCD's Resident Involvement: Resident Care Provided Care Provided: Adult Hospital Medicine
[2016-11-04 19:42] VITALS: Ht 182.9 cm; Wt 68.6 kg
[2016-11-04] MEDS ORDERED: SODIUM CHLORIDE 0.45% 1000ML 1,000 ML IV SCH (20:11)
[2016-11-04] MEDS ORDERED: POLYETHYLENE (MIRALAX) 17 GM PACK PO PRN (20:15)
[2016-11-04] MEDS ORDERED: MoRPHine SULFATE 2 MG/ML CARP IV PRN (20:15)
[2016-11-04] MEDS ORDERED: NITROGLYCERIN 0.4 MG SL PER TAB CHARGE SL PRN (20:15)
[2016-11-04] MEDS ORDERED: MAGNESIUM HYDROXIDE SUSP 30 ML UDC PO PRN (20:15)
[2016-11-04] MEDS ORDERED: ZOLPIDEM TARTRATE 5 MG TAB PO PRN ×2 (20:15)
[2016-11-04] MEDS ORDERED: ALUMINUM/MAGNESIUM/SIMETH (MAALOX MAX) 30 ML UDC PO PRN (20:15)
[2016-11-04] MEDS ORDERED: ONDANSETRON INJ 2 MG/ML 2 ML VIAL IV PRN (20:15)
[2016-11-04] MEDS ORDERED: ACETAMINOPHEN 325 MG TAB PO PRN (20:15)
[2016-11-04 20:44] LABS: URINE APPEARANCE CLEAR (CLEAR); URINE BILIRUBIN NEG (NEG); URINE COLOR YELLOW; URINE NITRITE NEG (NEG); URINE SPECIFIC GRAVITY 1.024 (1.000-1.030); UROBILINOGEN NEG (NEG)
[2016-11-04 20:52] LABS: MANUAL MICROSCOPIC REQUIRED? NO; REVIEW REQ? NO
[2016-11-04 21:35] VITALS: BP 149/83; PULSE 83; TEMP 36.8; O2SAT 97
[2016-11-04] MEDS ORDERED: OPTIRAY 320 IV PRN (22:15)
[2016-11-04] MEDS: TAMSULOSIN HCL 0.4 MG CAP PO SCH (22:53)
[2016-11-04] MEDS: RANITIDINE HCL 150 MG TAB PO SCH (22:53)
[2016-11-04] MEDS: SIMVASTATIN 40 MG TAB PO SCH (22:53)
[2016-11-04] MEDS: NITROGLYCERIN OINT 2% 1GM PACKET EXT SCH (22:54)
[2016-11-04] MEDS: PANTOprazole INJ 40 MG in DEXTROSE 5% 100ML IV SCH (22:54)
[2016-11-04] MEDS: D5W AND 1/2NSS + 20MEQ KCL 1,000 ML IV SCH (22:54)
--- NOTE | 2016-11-04 23:42 | DIAGNOSTIC IMAGING REPORT ---
CT OF THE ABDOMEN AND PELVIS WITH AND WITHOUT CONTRAST, RENAL MASS PROTOCOL CLINICAL HISTORY: Fall. Renal cyst. Prostate cancer. Blood in stool. COMPARISON: Abdomen and pelvis CT 11/01/2012. TECHNIQUE: Multiaxial CT images of the abdomen and pelvis were performed both before and after the intravenous administration of contrast. FINDINGS: The lung bases are clear. No suspicious lytic or blastic osseous lesions. There are multiple hypodense adrenal nodules. These measure just above water attenuation and likely represent adenomas. No abdominal or pelvic lymphadenopathy is present. There are multiple bilateral renal lesions. The largest is a 15 cm water attenuation lesion arising from the lower pole of the left kidney. This is consistent with a cyst. Numerous additional water attenuation lesions are also consistent with cysts. There are several lesions that are slightly hyperdense. These show no enhancement and represent hyperdense cysts. Several lesions are too small to characterize. No solid renal lesions are identified on this examination. There is no hydronephrosis. There is persistent irregular circumferential wall thickening of the urinary bladder with multiple small diverticula and bladder wall trabeculation. The findings may be due to chronic outlet obstruction and remain unchanged. The prostate gland is enlarged, measuring 5.8 cm in transverse dimension. This has increased in size. The prostate gland is heterogeneous. Images of the liver, spleen, gallbladder and pancreas are unremarkable. The caliber and wall thickness of small and large bowel are normal. Colonic diverticulosis. IMPRESSION: 1. No evidence of metastatic disease within the abdomen or pelvis. 2. Multiple bilateral renal lesions which are not significantly changed. The larger lesions are consistent with cysts while the smaller lesions are too small to characterize. No definite solid renal lesions identified. 3. Persistent bladder wall thickening of the hand trabeculation. This likely represents chronic bladder outlet obstruction From the enlarged prostate gland. 4. Slight increase in size in the prostate gland. The prostate gland remains heterogeneous. 5. Multiple bilateral adrenal nodules likely representing adenomas. 6. Extensive colonic diverticulosis Electronically signed by: Oh Pineda M.D. 11/04/2016 11:41 PM Dictated Date/Time: 11/04/2016 11:21 PM
[2016-11-05] VITALS (7 sets, daily range): BP systolic 100–159; BP diastolic 62–79; PULSE 61–83; TEMP 36.6–36.9; O2SAT 96–99
[2016-11-05 02:43] LABS: CKMB/CK RATIO 3.6 (0-3.0)
[2016-11-05] MEDS: PANTOprazole INJ 40 MG in DEXTROSE 5% 100ML IV SCH ×5 (04:32→23:27)
[2016-11-05] MEDS: NITROGLYCERIN OINT 2% 1GM PACKET EXT SCH (05:39)
[2016-11-05] MEDS: D5W AND 1/2NSS + 20MEQ KCL 1,000 ML IV SCH (05:42)
--- NOTE | 2016-11-05 07:34 | Family Medicine Progress Note ---
Progress Note Date of Service Nov 05, 2016. Subjective Pt evaluation today including: conversation w/ patient, physical exam, chart review, lab review Found pt resting comfortably in the gurney. Recounts his apparently unprovoked syncopal episode yesterday. At present, denies any current pains (including chest and abdomen), SOB, recurrence of bloody BM, headache, dizziness, extremity concerns, blurry vision or eye movement problems, or other acute c/o. Constitutional: No fever, No chills Respiratory: No cough, No shortness of breath Cardiovascular: No chest pain, No edema Abdomen: + GI bleeding, No pain, No nausea, No vomiting Neurologic: No weakness, No numbness/tingling, No vertigo Medications Current Inpatient Medications Medications (Trade) Dose Ordered Sig/William Route Start Time Stop Time Status Last Admin Dose Admin Acetaminophen (Tylenol Tab) 650 mg Q4H PRN PO 11/04/16 20:15 12/04/16 20:14 Al Hydrox/Mg Hydrox/Simethicone (Maalox Max Susp) 15 ml Q4H PRN PO 11/04/16 20:15 12/04/16 20:14 Magnesium Hydroxide (Milk Of Magnesia Susp) 30 ml Q12H PRN PO 11/04/16 20:15 12/04/16 20:14 Zolpidem Tartrate (Ambien Tab) 5 mg HSZ PRN PO 11/04/16 20:15 12/04/16 20:14 Ondansetron HCl (Zofran Inj) 4 mg Q6H PRN IV 11/04/16 20:15 12/04/16 20:14 Nitroglycerin (Nitrostat Tab) 0.4 mg UD PRN SL 11/04/16 20:15 12/04/16 20:14 Nitroglycerin (Nitroglycerin 2% Oint) 1 inch Q6H EXT 11/05/16 00:00 12/05/16 00:00 11/04/16 22:54 1 INCH Morphine Sulfate (MoRPHine SULFATE INJ) 2 mg Q30M PRN IV 11/04/16 20:15 11/18/16 20:14 Polyethylene (Miralax Powder Packet) 17 gm DAILY PRN PO 11/04/16 20:15 12/04/16 20:14 Atenolol (Tenormin Tab) 25 mg DAILY PO 11/05/16 09:00 12/05/16 08:59 11/05/16 08:05 25 MG Simvastatin (Zocor Tab) 40 mg QPM PO 11/04/16 21:00 12/04/16 20:59 11/04/16 22:53 40 MG Tamsulosin HCl (Flomax Cap) 0.4 mg QPM PO 11/04/16 21:00 12/04/16 20:59 11/04/16 22:53 0.4 MG Ranitidine HCl (zANTac TAB) 150 mg BID PO 11/04/16 21:00 12/04/16 20:59 11/05/16 08:05 150 MG Amoxicillin/ Clavulanate Potassium (Augmentin Tab) 875 mg BIDM PO 11/05/16 08:00 11/15/16 07:59 11/05/16 08:05 875 MG Potassium Chloride/Dextrose/ Sod Cl 1,000 ml @ 125 mls/hr Q8H IV 11/04/16 22:00 12/04/16 21:59 11/05/16 05:42 125 MLS/HR Pantoprazole Sodium 40 mg/ Dextrose 100 ml @ 20 mls/hr Q5H IV 11/04/16 23:00 12/04/16 22:59 11/05/16 04:32 20 MLS/HR Ioversol (Optiray 320) 100 ml UD PRN IV 11/04/16 22:15 11/08/16 22:14 Objective Vital Signs Date Time Temp Pulse Resp B/P (MAP) Pulse Ox O2 Delivery O2 Flow Rate FiO2 11/05/16 07:59 36.6 74 18 107/68 (81) 99 Room Air 11/05/16 05:12 36.9 78 18 100/62 (75) 99 Room Air 11/05/16 04:00 Room Air 11/05/16 00:12 36.9 83 20 129/79 (96) 98 Room Air 11/05/16 00:00 Room Air 11/04/16 21:35 36.8 83 15 149/83 (105) 97 Room Air 11/04/16 20:00 81 14 122/73 98 Room Air 11/04/16 19:42 Room Air 11/04/16 19:30 82 22 99 11/04/16 19:09 85 11/04/16 19:00 79 19 100 11/04/16 18:28 84 18 127/78 99 Room Air 11/04/16 17:40 Room Air 11/04/16 17:06 36.4 84 16 119/68 100 Room Air Physical Exam General Appearance: no apparent distress Eyes: PERRL, EOMI Respiratory/Chest: lungs clear, normal breath sounds, no respiratory distress Cardiovascular: regular rate, rhythm, no edema, no murmur Abdomen: normal bowel sounds, non tender, soft Notes: - Contusion around right eye - Sutured laceration above right orbit, no present bleeding or d/c Laboratory Results 11/04/16 17:29 Red Blood Count 3.48, Mean Corpuscular Volume 95.1, Mean Corpuscular Hemoglobin 31.9, Mean Corpuscular Hemoglobin Concent 33.5, Mean Platelet Volume 9.7, Neutrophils (%) (Auto) 88.7, Lymphocytes (%) (Auto) 6.7, Monocytes (%) (Auto) 3.6, Eosinophils (%) (Auto) 0.1, Basophils (%) (Auto) 0.1, Neutrophils # (Auto) 10.73, Lymphocytes # (Auto) 0.81, Monocytes # (Auto) 0.44, Eosinophils # (Auto) 0.01, Basophils # (Auto) 0.01 11/04/16 17:29 Test 11/04/16 17:29 11/04/16 17:41 11/04/16 20:34 11/05/16 02:08 White Blood Count 12.10 K/uL (4.8-10.8) Red Blood Count 3.48 M/uL (4.7-6.1) Hemoglobin 11.1 g/dL (14.0-18.0) Hematocrit 33.1 % (42-52) Mean Corpuscular Volume 95.1 fL (80-100) Mean Corpuscular Hemoglobin 31.9 pg (25-34) Mean Corpuscular Hemoglobin Concent 33.5 g/dl (32-36) Platelet Count 124 K/uL (130-400) Mean Platelet Volume 9.7 fL (7.4-10.4) Neutrophils (%) (Auto) 88.7 % Lymphocytes (%) (Auto) 6.7 % Monocytes (%) (Auto) 3.6 % Eosinophils (%) (Auto) 0.1 % Basophils (%) (Auto) 0.1 % Neutrophils # (Auto) 10.73 K/uL (1.4-6.5) Lymphocytes # (Auto) 0.81 K/uL (1.2-3.4) Monocytes # (Auto) 0.44 K/uL (0.11-0.59) Eosinophils # (Auto) 0.01 K/uL (0-0.5) Basophils # (Auto) 0.01 K/uL (0-0.2) RDW Standard Deviation 46.1 fL (36.4-46.3) RDW Coefficient of Variation 13.4 % (11.5-14.5) Immature Granulocyte % (Auto) 0.8 % Immature Granulocyte # (Auto) 0.10 K/uL (0.00-0.02) Prothrombin Time 10.5 SECONDS (9.0-12.0) Prothromb Time International Ratio 1.0 (0.9-1.1) Activated Partial Thromboplast Time 19.4 SECONDS (21.0-31.0) Partial Thromboplastin Ratio 0.7 Est Creatinine Clear Calc Drug Dose 37.2 ml/min Estimated GFR () 56.5 Estimated GFR (Non- 48.7 BUN/Creatinine Ratio 40.5 (10-20) Calcium Level 8.8 mg/dl (8.5-10.1) Total Bilirubin 0.4 mg/dl (0.2-1) Direct Bilirubin 0.1 mg/dl (0-0.2) Aspartate Amino Transf (AST/SGOT) 16 U/L (15-37) Alanine Aminotransferase (ALT/SGPT) 17 U/L (12-78) Alkaline Phosphatase 55 U/L (45-117) Total Protein 6.7 gm/dl (6.4-8.2) Albumin 3.6 gm/dl (3.4-5.0) Lipase 153 U/L (73-393) Bedside Hemoglobin 10.5 g/dl (14.0-18.0) Bedside Hematocrit 31 % (42-52) Bedside Sodium 142 mEq/L (135-144) Bedside Potassium 4.0 mEq/L (3.3-5.0) Bedside Chloride 107 mEq/L (101-112) Bedside Total CO2 22 mEq/l (24-31) Anion Gap 18.0 mmol/L (16-25) Bedside Blood Urea Nitrogen 48 mg/dl (7-18) Bedside Creatinine 1.4 mg/dl (0.6-1.3) Bedside Glucose (other) 134 mg/dl (70-99) Bedside Ionized Calcium (Windy) 1.28 mmol/l (1.12-1.32) Urine Color YELLOW Urine Appearance CLEAR (CLEAR) Urine pH 5.0 (4.5-7.5) Urine Specific Holt 1.024 (1.000-1.030) Urine Protein NEG (NEG) Urine Glucose (UA) NEG (NEG) Urine Ketones NEG (NEG) Urine Occult Blood NEG (NEG) Urine Nitrite NEG (NEG) Urine Bilirubin NEG (NEG) Urine Urobilinogen NEG (NEG) Urine Leukocyte Esterase NEG (NEG) Total Creatine Kinase 132 U/L (39-308) Creatine Kinase MB 4.8 ng/ml (0.5-3.6) Creatine Kinase MB Ratio 3.6 (0-3.0) Troponin I < 0.015 ng/ml (0-0.045) Assessment and Plan 86 yo male c/o syncopal episode (no known hx of same) and black tarry stool the day before (no known hx of same). Syncope: DDx includes cardiac (including arrhythmia), anemia, ACS, electrolyte issues, acute intra-cranial event. - 23Sep CT head no acute findings. TnI x3 negative. - EKG on admit was NSR 82 with PAC's but no acute ST-T wave changes. Admitted to telemetry for further monitoring. - Mild hypotension in AM s/p admit. Held home atenolol. [ ] Cardiac echo ordered. - Neuro checks per protocol. [ ] PT & OT consults ordered, appreciate recs. Melena: First known episode 22Sep. Pt denies hx of same, hematochezia, hematemesis. Does have hx of prostate ca. Further record review noted hx of peptic ulcer, which pt says was around 1950's and no recurrence. - Admit Hb 11.1. Recheck next AM 8.4. No further acute melena overnight. Denies abd pain. Hemoccult positive. Ordered q6h Hb for tracking. - Pt notes prior routine colonoscopies, all normal per him, with last at age 78 (~2008). - On admit, started NPO except meds & ice chips. Was started on D5W + 1/2 NSS + 20meq KCL at 125mls/hr. Changed to 0.9% NS at 125 ml/hr. - Started protonix drip and PO zantac. - 23Sep CT a/p with contrast: No evidence of metastatic disease within the abdomen or pelvis. [ ] GI (Dr. Ogden) consulted, appreciate recs. Nondisplaced right orbital floor fracture & facial laceration: [ ] ENT consult pending (Dr. Da Silva), appreciate recs. - Skin laceration over right eye sutured (nylon) in ED on 23Sep. Will eventually need suture removal. - Started Augmentin 875mg BID PO. - Rec'd f/u with ophtho within a week. Prostate cancer (Dr. Rubin): Says is managed conservatively, next outpt appt scheduled for late November. - On home Tamsulosin 0.4 mg q PM. HLD / HTN: On home Atenolol 25mg daily and Simvastatin 40mg daily. CAD: Hx AR and stenting x 2 around 2010 ([place]). - Held home ASA 81. Hyperglycemia: Glucose noted in 130's on admit. No known hx of DM. - HbA1c pending. DVT prophy: SCDs. No rx anticoag due to possible GI bleed. 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 Resident Involvement: Resident Care Provided Care Provided: Adult Hospital Medicine (inpt rounds) Reviewed: Pt Seen/Exam by Me History denies any new complains Constitutional: denies: fever Respiratory: negative: short of breath Cardiovascular: denies chest pain General Appearance: no apparent distress Ears, Nose, Throat: other (right side face with dried blood ) Respiratory: lungs clear, no respiratory distress Cardiovascular: regular rate, rhythm Neurologic/Psychiatric: alert, oriented x 3 Skin Characteristics: warm/dry Assessment/Plan Resident Physician Supervision Note: I independently interviewed and examined the patient and verified the saul history and physical, reviewed labs and image studies, discussed the case with the resident Dr. Breaux and agree with the findings and care plan.
[2016-11-05] MEDS: AMOXICILLIN/CLAVULANATE TAB 875 MG TAB PO SCH ×2 (08:05→16:12)
[2016-11-05] MEDS: RANITIDINE HCL 150 MG TAB PO SCH ×2 (08:05→21:05)
[2016-11-05 08:28] LABS: BASO % 0.5 %; BASO ABS # 0.03 K/uL (0-0.2); EOS % 1.9 %; HEMATOCRIT 26.1 % (42-52); IG% 1.1 %; LYMPH % 15.8 %; MEAN CELL VOLUME 94.9 fL (80-100); MEAN CORPUSCULAR HEMOGLOBIN 30.5 pg (25-34); MEAN CORPUSCULAR HGB CONC 32.2 g/dl (32-36); MEAN PLATELET VOLUME 9.5 fL (7.4-10.4); NEUT % 69.7 %; PLATELET COUNT 100 K/uL (130-400); RED BLOOD COUNT 2.75 M/uL (4.7-6.1); WHITE BLOOD COUNT 6.34 K/uL (4.8-10.8)
[2016-11-05 08:45] LABS: COMPLETE YES
[2016-11-05 09:05] LABS: BLOOD UREA NITROGEN 34 mg/dl (7-18); BUN/CREATININE RATIO 30.5 (10-20); CALCIUM 7.9 mg/dl (8.5-10.1); CARBON DIOXIDE 22 mmol/L (21-32); CHLORIDE 113 mmol/L (98-107); GLUCOSE 133 mg/dl (70-99); POTASSIUM 4.2 mmol/L (3.5-5.1); SODIUM 142 mmol/L (136-145)
[2016-11-05 09:11] LABS: CKMB/CK RATIO 2.4 (0-3.0); PHOSPHORUS 2.7 mg/dl (2.5-4.9)
[2016-11-05] MEDS: SODIUM CHLORIDE 0.9% 1000ML 1,000 ML IV SCH ×2 (10:41→18:29)
[2016-11-05 14:44] LABS: HEMATOCRIT 24.4 % (42-52)
--- NOTE | 2016-11-05 18:25 | ECHOCARDIOGRAM REPORT ---
*NOTICE TO RECEIVING LIBERTARIAN AGENCY This information is strictly Confidential and protected under [place] law. [place] law prohibits you from making any further disclosure of this information unless further disclosure is expressly permitted by the written consent of the person to whom it pertains or is authorized by law. A general authorization for the release of medical or other information is not sufficient for this purpose. Hospital accepts no responsibility if the information is made available to any other person, INCLUDING THE PATIENT. Interpretation Summary * Name: URIEL DEGROOT Study Date: 11/05/2016 06:52 AM BP: 100/62 mmHg * Patient Location: [facility]\S\N278\S\2 HR: 78 * : 1930 (M/d/yyyy) Gender: Male * Age: 86 yrs Ethnicity: [place] Weight: 147 lb * Ordering Physician: Ridge Marion * Performed By: Linnea Villatoro * * Reason For Study: SYNCOPE * -- Conclusions -- * 1. Normal left ventricular size and systolic function. EF 60-65%. No regional wall motion abnormalities. Mild concentric left ventricular hypertrophy. Type 1 diastolic dysfunction. * 2. Aortic valve sclerosis mild, without significant aortic valvular stenosis. * 3. No prior study available for comparison. Procedure Details * A complete two-dimensional transthoracic echocardiogram was performed (2D, M-mode, Doppler and color flow Doppler). Left Ventricle * Normal left ventricular size and systolic function. EF 60-65%. No regional wall motion abnormalities. Mild concentric left ventricular hypertrophy. Type 1 diastolic dysfunction. Right Ventricle * The right ventricle is normal in size and function. * The right ventricular systolic function is normal as assessed by tricuspid annular plane systolic excursion (TAPSE) (normal >1.5 cm). Atria * The left atrial size is normal. * Right atrial size is normal. * There is no evidence of atrial septal defect, but resolution does not allow assessment for a patent foramen ovale. Mitral Valve * There is mild mitral annular calcification. * The mitral valve is grossly normal. * There is no mitral valve stenosis. * There is trace mitral regurgitation. Tricuspid Valve * The tricuspid valve is not well visualized, but is grossly normal. * There is no tricuspid stenosis. * Significant tricuspid regurgitation is absent. Aortic Valve * The aortic valve is trileaflet. * Aortic valve sclerosis mild, without significant aortic valvular stenosis. * Trace aortic regurgitation. Pulmonic Valve * The pulmonary valve is inadequately visualized, but the Doppler data is adequate for interpretation. * There is no pulmonic valvular stenosis. * Trace pulmonic valvular regurgitation. Great Vessels * The aortic root is normal size. * Ascending aorta of normal dimension Pericardium/Pleural * Trace pericardial effusion. Great Vessels * Normal inferior vena cava size and collapsability with sniff indicates a normal right atrial pressure of 3 mmHg MMode 2D Measurements and Calculations IVSd 1.2 cm IVSs 2.1 cm LVIDd 4.2 cm LVIDs 2.8 cm LVPWd 1.3 cm LVPWs 2.2 cm IVS/LVPW 0.96 FS 34.2 % EDV(Teich) 79.8 ml ESV(Teich) 29.1 ml EF(Teich) 63.5 % EDV(cubed) 75.6 ml ESV(cubed) 21.6 ml EF(cubed) 71.5 % % IVS thick 76.8 % % LVPW thick 78.1 % LV mass(C)d 186.6 grams LV mass(C)s 286.4 grams SV(Teich) 50.7 ml SV(cubed) 54.0 ml Ao root diam 3.8 cm Ao root area 11.4 cm\S\2 ACS 1.4 cm LA dimension 3.6 cm asc Aorta Diam 3.6 cm LA/Ao 0.94 LVOT diam 1.9 cm LVOT area 2.8 cm\S\2 Doppler Measurements and Calculations MV E max grisel 68.6 cm/sec MV A max grisel 97.5 cm/sec MV E/A 0.70 MV dec time 0.22 sec Ao V2 max 134.1 cm/sec Ao max PG 7.2 mmHg Ao max PG (full) 3.4 mmHg XAVI(V,A) 2.0 cm\S\2 XAVI(V,D) 2.0 cm\S\2 AI max grisel 335.5 cm/sec AI max PG 45.0 mmHg AI dec slope 161.5 cm/sec\S\2 AI P1/2t 608.3 msec LV V1 max PG 3.8 mmHg LV V1 max 97.9 cm/sec MR max grisel 466.9 cm/sec MR max PG 87.2 mmHg PA V2 max 65.1 cm/sec PA max PG 1.7 mmHg PI end-d grisel 106.1 cm/sec
--- NOTE | 2016-11-05 19:58 | GASTROINTESTINAL CONSULTATION ---
DATE OF CONSULTATION: 11/05/2016 ADDENDUM SUBJECTIVE: The patient is currently on a pantoprazole drip, Augmentin 875 twice daily, simvastatin, Flomax, ranitidine 150 p.o. b.i.d., Zofran, nitroglycerin tablets and MiraLax as needed. We will plan for an upper endoscopy tomorrow. After midnight, the patient should be n.p.o. except for medications, although can have clear liquid diet this evening without red beverages. We will tentatively place the patient for an upper endoscopy unless there are any restrictions by the primary team or other consultants.
[2016-11-05 20:19] LABS: HEMATOCRIT 25.9 % (42-52)
--- NOTE | 2016-11-05 20:25 | GASTROINTESTINAL CONSULTATION ---
DATE OF CONSULTATION: 11/05/2016 CHIEF COMPLAINT: Melena. HISTORY OF PRESENT ILLNESS: Mr. Russo is an 86-year-old white male in his usual state of health until experiencing a possible syncopal or near syncopal episode that led to a facial trauma. Prior to this, the patient had experienced a single black tarry bowel movement that was formed. The day prior to this event, the patient's bowel movement was normal in color and shape, although he did have some lightheadedness. He denies the use of any NSAIDs, Pepto-Bismol or aspirin products and has no prior history of peptic ulcer disease. His last colonoscopy was 8 years ago and does not believe there were any abnormal findings. The patient denied any hematemesis, coffee-ground emesis, abdominal pain, nausea, vomiting, weight changes or anorexia symptoms recently or chronically. PAST MEDICAL HISTORY: Significant for prostate cancer and hyperlipidemia. HOME MEDICATIONS: Include, atenolol, Zocor, aspirin and tamsulosin for prostate. SOCIAL HISTORY: The patient is . He denies tobacco use, does not use alcoholic beverages. Lives with his family and is retired. FAMILY HISTORY: Noncontributory. He does use a daily baby aspirin, but has done so for many years. He has not been taking any recent increase in aspirin products or NSAIDS. ALLERGIES: He has no known drug allergies. CURRENT HOME MEDICATIONS: As mentioned above. REVIEW OF SYSTEMS: Otherwise noncontributory based on 13-point exam except for mentioned above. The patient denies fever, chills, nausea, vomiting, abdominal pain, weight loss, hematemesis, coffee-ground emesis, bright red blood per rectum, diarrhea or constipation. The patient denies any significant joint aches or rashes. PHYSICAL EXAMINATION: GENERAL: Today shows a well-developed, well-nourished male, in no acute distress, although does have right-sided facial trauma over the eyebrow and below due to his fall. The patient is awake, alert and oriented x3. VITAL SIGNS: On admission yesterday at 5:00 p.m. was a temperature of 36.4, heart rate 84, respirations 16, blood pressure 119/68, pulse ox 100% on room air. HEENT: Sclerae are anicteric. There are scabs over the right eyebrow region and below in the cheek. Oral mucosa is moist, Conjunctivae are moist. HEART: Normal S1, S2. LUNGS: Clear to auscultation without rales, rhonchi or wheezes. ABDOMEN: Soft, flat, nontender, nondistended with good bowel sounds. There are no abdominal bruits or masses. I do not appreciate hepatosplenomegaly. There is no evidence of ascites or shifting dullness. There is no evidence of rebound or guarding. There are positive bowel sounds. EXTREMITIES: Normal range of motion. There are no neurologic defects that are focal or lateralizing. Without clubbing, cyanosis or edema. RECTAL: Deferred. LABORATORY STUDIES: On admission, show white count of 12.1, although today is down to 6.3. His hemoglobin was 11.1, but today's value was 8.4. His platelet count is somewhat low at 124 and today is 100. Nevertheless, his MCV is 95 and admission RDW was 13.4 and again 13.6. Serum chemistries, potassium 4.2, BUN and creatinine were 53 and 1.3 and today are 34 and 1.1. Ionized calcium is 1.28. Troponin level is less than 0.015 on 3 occasions, although CK-MB is slightly elevated at 4.8. LFTs are normal including alk phos 55, ALT 15, AST 16, total and direct is 0.4 and 0.1 respectively. Lipase is 153, albumin is normal at 3.6. IMAGING STUDIES: On admission, showed a head CT that showed motion artifact without any intracranial abnormality. 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 There are also mild microvascular ischemic changes. CT of the facial area for right facial pain, there was a nondisplaced right orbital floor fracture, right periorbital soft tissue swelling is noted. There is also hemorrhage in the right maxillary sinus. There is no fracture in the nasal bones. The patient had a CT of the abdomen last evening. There was no evidence for metastatic disease in the abdomen or pelvis. There are small bilateral renal lesions which are unchanged. Persistent bladder wall thickening is noted, prostatic enlargement, which is slightly increased from prior studies. There are bilateral adrenal nodules consistent with adenomas with extensive colonic diverticulosis, but no evidence for diverticulitis. IMPRESSION: Mr. Russo is an 86-year-old white male with acute onset of a single formed very dark bowel movement with prior bowel movements of normal color. His hemoglobin which has fallen with hydration and after admission down to 8.4 overall is of normocytic value, which would speak against chronic GI blood loss. Other than a daily baby aspirin which has been used chronically, the patient has not used any increased amounts of aspirin or does not use ibuprofen or other NSAIDs. There is no prior history of peptic ulcer disease and the patient does not drink alcoholic beverages. His platelet count is a little low of unclear etiology, although liver tests and white blood cell count is normal and therefore portal hypertension is less likely as a source. The CT scan does not comment of any abdominal varices, however, that the liver, spleen, gallbladder, and pancreas are unremarkable. RECOMMENDATIONS: I made the following recommendations. Will keep the patient n.p.o. after midnight. He can have clears tonight without red beverages unless develops nausea or vomiting and that should be discontinued. Will plan for an upper endoscopy tomorrow. The patient's INR is 1.0 with a normal PTT and urinalysis does not suggest evidence of urinary tract infection. The patient does not recall a prior upper endoscopy and is not chronically had upper GI symptoms. Differential diagnosis includes peptic ulcer disease, gastritis, possibly portal hypertension or AV malformations in the upper GI tract and possibly elsewhere in the small bowel or proximal colon. However, the elevated BUN makes an upper bleed, most likely. Will arrange for upper endoscopy with Dr. Desir tomorrow in the afternoon. Consideration for colonoscopy once the upper endoscopy is completed. All questions are answered for the patient. Thank you for allowing us to participate in this patient's care. BRIAN
[2016-11-05] MEDS: SIMVASTATIN 40 MG TAB PO SCH (21:04)
[2016-11-05] MEDS: TAMSULOSIN HCL 0.4 MG CAP PO SCH (21:04)
[2016-11-06] VITALS (8 sets, daily range): BP systolic 91–145; BP diastolic 60–83; PULSE 58–75; TEMP 36.3–37; O2SAT 91–100
[2016-11-06 02:19] LABS: HEMATOCRIT 23.9 % (42-52)
[2016-11-06] MEDS: SODIUM CHLORIDE 0.9% 1000ML 1,000 ML IV SCH ×3 (02:29→12:15)
[2016-11-06] MEDS: PANTOprazole INJ 40 MG in DEXTROSE 5% 100ML IV SCH ×4 (04:40→19:32)
[2016-11-06 07:00] LABS: ESTIMATED AVERAGE GLUCOSE 111 mg/dl; HA1C FLAG Normal (Normal)
[2016-11-06] MEDS: RANITIDINE HCL 150 MG TAB PO SCH ×2 (07:50→20:34)
[2016-11-06] MEDS: AMOXICILLIN/CLAVULANATE TAB 875 MG TAB PO SCH ×2 (07:51→18:37)
[2016-11-06 08:18] LABS: HEMATOCRIT 24.5 % (42-52); MEAN CELL VOLUME 96.1 fL (80-100); MEAN CORPUSCULAR HEMOGLOBIN 29.8 pg (25-34); RED BLOOD COUNT 2.55 M/uL (4.7-6.1); WHITE BLOOD COUNT 4.22 K/uL (4.8-10.8)
[2016-11-06 08:38] LABS: BUN/CREATININE RATIO 18.8 (10-20); CREATININE 1.1 mg/dl (0.60-1.40); POTASSIUM 3.9 mmol/L (3.5-5.1)
[2016-11-06 08:40] LABS: BASO % 0.2 %; BASO ABS # 0.01 K/uL (0-0.2); COMPLETE YES; EOS % 3.8 %; IG% 1.4 %; LYMPH % 19.7 %; LYMPH ABS # 0.83 K/uL (1.2-3.4); MEAN PLATELET VOLUME 9.3 fL (7.4-10.4); MONO % 9.7 %; NEUT % 65.2 %; PLATELET COUNT 91 K/uL (130-400); PLT ESTIMATE DECREASED
--- NOTE | 2016-11-06 08:51 | Family Medicine Progress Note ---
Progress Note Date of Service Nov 06, 2016. Subjective Pt evaluation today including: conversation w/ patient, conversation w/ family , physical exam, chart review, lab review, review of inpatient medication list Pain: No pain reported PO Intake: NPO for EGD today Voiding: no voiding problems Patient eager to have EGD done today. He is hungry. He reports frequent urination, but no pain nor further MO bleeding. Resting comfortably, daughter in room. Constitutional: No fever, No chills, No weight loss ENT: No trouble swallowing Respiratory: No cough, No sputum, No wheezing, No shortness of breath Cardiovascular: No chest pain, No orthopnea, No edema, No claudication Abdomen: + GI bleeding, No pain, No nausea, No vomiting, No diarrhea, No constipation Male : + urinary frequency, + hematuria Heme: + abnormal bleeding/bruising Medications Current Inpatient Medications Medications (Trade) Dose Ordered Sig/William Route Start Time Stop Time Status Last Admin Dose Admin Acetaminophen (Tylenol Tab) 650 mg Q4H PRN PO 11/04/16 20:15 12/04/16 20:14 Al Hydrox/Mg Hydrox/Simethicone (Maalox Max Susp) 15 ml Q4H PRN PO 11/04/16 20:15 12/04/16 20:14 Magnesium Hydroxide (Milk Of Magnesia Susp) 30 ml Q12H PRN PO 11/04/16 20:15 12/04/16 20:14 Ondansetron HCl (Zofran Inj) 4 mg Q6H PRN IV 11/04/16 20:15 12/04/16 20:14 Nitroglycerin (Nitrostat Tab) 0.4 mg UD PRN SL 11/04/16 20:15 12/04/16 20:14 Polyethylene (Miralax Powder Packet) 17 gm DAILY PRN PO 11/04/16 20:15 12/04/16 20:14 Atenolol (Tenormin Tab) 25 mg DAILY PO 11/05/16 09:00 12/05/16 08:59 Future Hold 11/05/16 08:05 25 MG Simvastatin (Zocor Tab) 40 mg QPM PO 11/04/16 21:00 12/04/16 20:59 11/05/16 21:04 40 MG Tamsulosin HCl (Flomax Cap) 0.4 mg QPM PO 11/04/16 21:00 12/04/16 20:59 11/05/16 21:04 0.4 MG Ranitidine HCl (zANTac TAB) 150 mg BID PO 11/04/16 21:00 12/04/16 20:59 11/06/16 07:50 150 MG Amoxicillin/ Clavulanate Potassium (Augmentin Tab) 875 mg BIDM PO 11/05/16 08:00 11/15/16 07:59 11/06/16 07:51 875 MG Pantoprazole Sodium 40 mg/ Dextrose 100 ml @ 20 mls/hr Q5H IV 11/04/16 23:00 12/04/16 22:59 11/06/16 15:02 20 MLS/HR Ioversol (Optiray 320) 100 ml UD PRN IV 11/04/16 22:15 11/08/16 22:14 Sodium Chloride 1,000 ml @ 60 mls/hr [id number] IV 11/05/16 10:30 12/05/16 10:29 11/06/16 12:15 60 MLS/HR Bacitracin/ Polymyxin B Sulfate (Polysporin Oint) 1 appln BID EXT 11/06/16 21:00 12/06/16 20:59 Objective Vital Signs Date Time Temp Pulse Resp B/P (MAP) Pulse Ox O2 Delivery O2 Flow Rate FiO2 11/06/16 15:41 Room Air 11/06/16 15:00 36.3 70 18 113/68 98 Room Air 11/06/16 14:55 36.3 70 18 113/68 (83) 98 Room Air 11/06/16 12:00 Room Air 11/06/16 11:36 36.7 75 18 103/62 (76) 99 Room Air 11/06/16 08:00 Room Air 11/06/16 07:47 36.8 60 18 98/61 (73) 97 Room Air 11/06/16 04:00 Room Air 11/06/16 03:38 37.0 58 16 91/60 (70) 91 Room Air 11/06/16 00:11 36.7 65 18 113/68 (83) 98 Room Air 11/06/16 00:00 Room Air 11/05/16 20:13 36.6 76 19 112/71 (85) 98 Room Air 11/05/16 20:00 Room Air 11/05/16 16:00 Room Air Physical Exam General Appearance: WD/WN, no apparent distress Eyes: normal inspection, PERRL, EOMI ENT: hearing grossly normal, pharynx normal Respiratory/Chest: lungs clear, normal breath sounds, no respiratory distress, no accessory muscle use Cardiovascular: no edema, no gallop, no JVD, no murmur Abdomen: normal bowel sounds, non tender, soft Skin: + pertinent finding (right orbital fracture with superficial sutures; abrasion of right elbow) Laboratory Results Last Resulted 11/06/16 08:02 Red Blood Count 2.55, Mean Corpuscular Volume 96.1, Mean Corpuscular Hemoglobin 29.8, Mean Corpuscular Hemoglobin Concent 31.0, Mean Platelet Volume 9.3, Neutrophils (%) (Auto) 65.2, Lymphocytes (%) (Auto) 19.7, Monocytes (%) (Auto) 9.7, Eosinophils (%) (Auto) 3.8, Basophils (%) (Auto) 0.2, Neutrophils # (Auto) 2.75, Lymphocytes # (Auto) 0.83, Monocytes # (Auto) 0.41, Eosinophils # (Auto) 0.16, Basophils # (Auto) 0.01 11/06/16 14:01 Last Resulted 11/06/16 08:02 Assessment and Plan 86 yo male presents with syncopal episode and black tarry stool the day before ( no known hx of either). Patient had received flu and pneumonia vaccines the day prior Syncope: DDx includes cardiac (including arrhythmia), anemia, ACS, electrolyte issues, acute intra-cranial event. - 23Sep CT head no acute findings. Trops x3 negative. - EKG on admit was NSR 82 with PAC's but no acute ST-T wave changes. Admitted to telemetry for further monitoring. - Mild hypotension in AM s/p admit. Held home atenolol. - Cardiac echo grossly normal, EF 60-65%, mild type 1 diastolic failur - Neuro checks per protocol. - PT & OT consults appreciated, patient for home upon DC. Melena: First known episode 22Sep. Pt denies hx of same, hematochezia, hematemesis. Does have hx of prostate ca. Further record review noted hx of peptic ulcer, which pt says was around 1950's and no recurrence. - Admit Hb 11.1. Recheck next AM 8.4. Last Hb: 9.7 - No further acute melena overnight. Denies abd pain. Hemoccult positive. Ordered q6h Hb for tracking. - Pt notes prior routine colonoscopies, all normal per him, with last at age 78 (~2008). - On admit, started NPO except meds & ice chips. Was started on D5W + 1/2 NSS + 20meq KCL at 125mls/hr. Changed to 0.9% NS at 125 ml/hr. - Started protonix drip and PO zantac. - 23Sep CT a/p with contrast: No evidence of metastatic disease within the abdomen or pelvis. - GI (Dr. Ogden) consulted, appreciate recs. - For EGD today Nondisplaced right orbital floor fracture & facial laceration: - ENT consult pending (Dr. Da Silva out of town), will likely need outpatient follow up. - Skin laceration over right eye sutured (nylon) in ED on 23Sep. Will eventually need suture removal. - Ordered gentle wash with bacitracin for arm abrasion. - Started Augmentin 875mg BID PO. - Rec'd f/u with ophtho within a week. Hematuria with PMH Prostate cancer (Dr. Rubin): Says is managed conservatively , next outpt appt scheduled for late November. - On home Tamsulosin 0.4 mg q PM. - Pt. reports dysuria and hematuria this AM, ordered UA which was negative for infection -? low platelets with hx of prostate cancer - Rechecked PSA today, up to 12 from november 2015 (10) - Post void residual today of 115 cc - Ordered BID post-void residual levels - urology consulted, appreciate recs HLD / HTN: On home Atenolol 25mg daily and Simvastatin 40mg daily. CAD: Hx OK and stenting x 2 around 2010 ([place]) from Dr. Otto(?) - Held home ASA 81. Hyperglycemia: Glucose noted in 130's on admit. No known hx of DM. - HbA1c 5.5% DVT prophy: SCDs. No rx anticoag due to possible GI bleed. Code status: Full Resident Tracking Resident Involvement: Resident Care Provided Care Provided: Adult [facility]
--- NOTE | 2016-11-06 10:40 | Clinical Documentation Query ---
FEMI Murphy : CLINICAL DOCUMENTATION QUERY Patient is an 86 year old male admitted s/p syncopal event for evaluation and treatment of melena. Admission hemoglobin and hematocrit were 11.1 g/dl and 33.1%. This a.m. (11/06) repeat values are 7.6 g/dl an 24.5%. He is being monitored with serial hematology, seen in consultation by GI, placed on PPI infusion, and is anticipating EGD today. As appropriate, consider clarification as suggested below. Thank you. In your clinical opinion is this patient being managed for: ( x ) possible Acute blood loss anemia ( ) Not Agree ( ) Other explanation of clinical findings (Please Explain) ( ) Unable to determine (Please Define) ( ) Need to Discuss The medical record reflects the following clinical findings, treatment, and risk factors. Clinical Indicators: As above Treatment:He is being monitored with serial hematology, seen in consultation by GI, placed on PPI infusion, and is anticipating EGD today. Risk Factors: ASA use, advanced age, history of peptic ulcer Please clarify and document your clinical opinion in the progress notes and discharge summary. Terms such as "probable", "suspected", "likely", "questionable", "possible", or "still to be ruled out" are acceptable. IF IN AGREEMENT, YOU MUST DOCUMENT ABOVE DIAGNOSTIC STATEMENT IN DAILY PROGRESS NOTES AND DISCHARGE SUMMARY. This document is not part of the patient's record. Thank You, Tashi Cassidy, ANDREW [phone]
--- NOTE | 2016-11-06 10:42 | Clinical Documentation Query ---
MARIA G Rdz : CLINICAL DOCUMENTATION QUERY Patient is an 86 year old male admitted s/p syncopal event for evaluation and treatment of melena. Admission hemoglobin and hematocrit were 11.1 g/dl and 33.1%. This a.m. (11/06) repeat values are 7.6 g/dl an 24.5%. He is being monitored with serial hematology, seen in consultation by GI, placed on PPI infusion, and is anticipating EGD today. As appropriate, consider clarification as suggested below. Thank you. In your clinical opinion is this patient being managed for: ( ) Acute blood loss anemia ( ) Not Agree ( ) Other explanation of clinical findings (Please Explain) ( ) Unable to determine (Please Define) ( ) Need to Discuss The medical record reflects the following clinical findings, treatment, and risk factors. Clinical Indicators: As above Treatment:He is being monitored with serial hematology, seen in consultation by GI, placed on PPI infusion, and is anticipating EGD today. Risk Factors: ASA use, advanced age, history of peptic ulcer Please clarify and document your clinical opinion in the progress notes and discharge summary. Terms such as "probable", "suspected", "likely", "questionable", "possible", or "still to be ruled out" are acceptable. IF IN AGREEMENT, YOU MUST DOCUMENT ABOVE DIAGNOSTIC STATEMENT IN DAILY PROGRESS NOTES AND DISCHARGE SUMMARY. This document is not part of the patient's record. Thank You, Tashi Cassidy, ANDREW [phone]
[2016-11-06 13:31] LABS: URINE APPEARANCE CLEAR (CLEAR); URINE BILIRUBIN NEG (NEG); URINE COLOR YELLOW; URINE NITRITE NEG (NEG); URINE SPECIFIC GRAVITY 1.019 (1.000-1.030); UROBILINOGEN NEG (NEG); ZZUR CULT IF INDIC CLEAN CATCH NO
[2016-11-06 13:33] LABS: MANUAL MICROSCOPIC REQUIRED? NO; REVIEW REQ? NO
[2016-11-06 14:14] LABS: HEMATOCRIT 28.9 % (42-52)
[2016-11-06] MEDS ORDERED: PROPOFOL IV EMULSION 10 MG/ML 20 ML VIAL IV ONE (16:50)
[2016-11-06] MEDS ORDERED: LIDOCAINE HCL 2% 2 ML VIAL (20MG/ML) ONE (16:50)
[2016-11-06] MEDS ORDERED: ETOMIDATE 2 MG/ML 20 ML VIAL IV ONE (16:51)
--- NOTE | 2016-11-06 17:06 | Endo History and Physical ---
History & Physical Date of Service: Nov 06, 2016. Chief Complaint: melena Referring Physician: Dr Horn History of Present Illness For EGD Past Surgical History Hx Cardiac Surgery: No Hx Abdominal Surgery: No Hx Post-Op Nausea and Vomiting: No Hx Thoracic Surgery: No Hx Orthopedic: Yes (lumbar spine) Social History Smoking Status: Never Smoker Smokeless Tobacco Use: No Hx Substance Use: No Hx Alcohol Use: Yes (1/q 3 days) Allergies Coded Allergies: No Known Allergies (Unverified , 11/04/16) Current Medications Reported Home Medications Medications Dose Route/Sig Max Daily Dose Days Date Category Dose Instructions Tamsulosin HCl 0.4 Mg Cap 0.4 Mg PO QPM 10/08/14 Reported AFTER EVENING MEAL Osteo Bi-Flex Triple Stre (Misc Natural Products) 1 Tab Tab 1 Tab PO DAILY 05/14/12 Reported Tenormin (Atenolol) 25 Mg Tab 25 Mg PO DAILY 05/14/12 Reported Zocor (Simvastatin) 40 Mg Tab 40 Mg PO QPM 05/14/12 Reported Aspir-81 (Aspirin) 81 Mg Tab 1 Tab PO DAILY 05/14/12 Reported Vital Signs Weight (Kilograms): 66.700 Height (Feet): 6 Height (Inches): 0.00 Date Time Temp Pulse Resp B/P (MAP) Pulse Ox O2 Delivery O2 Flow Rate FiO2 11/06/16 16:25 36.5 86 18 128/68 (88) 100 Room Air 11/06/16 15:41 Room Air 11/06/16 15:00 36.3 70 18 113/68 98 Room Air 11/06/16 14:55 36.3 70 18 113/68 (83) 98 Room Air 11/06/16 12:00 Room Air 11/06/16 11:36 36.7 75 18 103/62 (76) 99 Room Air 11/06/16 08:00 Room Air 11/06/16 07:47 36.8 60 18 98/61 (73) 97 Room Air 11/06/16 04:00 Room Air 11/06/16 03:38 37.0 58 16 91/60 (70) 91 Room Air 11/06/16 00:11 36.7 65 18 113/68 (83) 98 Room Air 11/06/16 00:00 Room Air 11/05/16 20:13 36.6 76 19 112/71 (85) 98 Room Air 11/05/16 20:00 Room Air Physical Exam General Appearance: WD/WN Respiratory/Chest: Respiratory effort: no dyspnea Cardiovascular: Heart Auscultation: RRR Abdomen: Inspection & Palpation: soft Assessment and Plan Melena for EGD
--- NOTE | 2016-11-06 17:22 | Discharge Instructions ---
Endoscopy Patient Instructions Date / Procedure(s) Performed Nov 06, 2016. EGD Allergy Information Coded Allergies: No Known Allergies (Unverified , 11/04/16) Discharge Date / Findings Nov 06, 2016. Duodenal ulcer Medication Instructions Restart Stopped Medication(s): resume meds Current Inpatient Medications Medications (Trade) Dose Ordered Sig/William Route Start Time Stop Time Status Last Admin Dose Admin Acetaminophen (Tylenol Tab) 650 mg Q4H PRN PO 11/04/16 20:15 12/04/16 20:14 Al Hydrox/Mg Hydrox/Simethicone (Maalox Max Susp) 15 ml Q4H PRN PO 11/04/16 20:15 12/04/16 20:14 Magnesium Hydroxide (Milk Of Magnesia Susp) 30 ml Q12H PRN PO 11/04/16 20:15 12/04/16 20:14 Ondansetron HCl (Zofran Inj) 4 mg Q6H PRN IV 11/04/16 20:15 12/04/16 20:14 Nitroglycerin (Nitrostat Tab) 0.4 mg UD PRN SL 11/04/16 20:15 12/04/16 20:14 Polyethylene (Miralax Powder Packet) 17 gm DAILY PRN PO 11/04/16 20:15 12/04/16 20:14 Atenolol (Tenormin Tab) 25 mg DAILY PO 11/05/16 09:00 12/05/16 08:59 Future Hold 11/05/16 08:05 25 MG Simvastatin (Zocor Tab) 40 mg QPM PO 11/04/16 21:00 12/04/16 20:59 11/05/16 21:04 40 MG Tamsulosin HCl (Flomax Cap) 0.4 mg QPM PO 11/04/16 21:00 12/04/16 20:59 11/05/16 21:04 0.4 MG Ranitidine HCl (zANTac TAB) 150 mg BID PO 11/04/16 21:00 12/04/16 20:59 11/06/16 07:50 150 MG Amoxicillin/ Clavulanate Potassium (Augmentin Tab) 875 mg BIDM PO 11/05/16 08:00 11/15/16 07:59 11/06/16 07:51 875 MG Pantoprazole Sodium 40 mg/ Dextrose 100 ml @ 20 mls/hr Q5H IV 11/04/16 23:00 12/04/16 22:59 11/06/16 15:02 20 MLS/HR Ioversol (Optiray 320) 100 ml UD PRN IV 11/04/16 22:15 11/08/16 22:14 Sodium Chloride 1,000 ml @ 60 mls/hr [id number] IV 11/05/16 10:30 12/05/16 10:29 11/06/16 12:15 60 MLS/HR Bacitracin/ Polymyxin B Sulfate (Polysporin Oint) 1 appln BID EXT 11/06/16 21:00 12/06/16 20:59 Provider Instructions Activity Restrictions - No exercising or heavy lifting for 24 hours. - Do not drink alcohol the day of the procedure. - Do not drive a car or operate machinery until the day after the procedure. - Do not make any important decisions or sign important papers in 24 hours after the procedure. Following Day: - Return to full activity which may include returning to work/school. Diet Start your diet with liquids and light foods (jello, soup, juice, toast). Then eat your usual diet if not nauseated. Treatment For Common After Affects For mild abdominal pain, bloating, or excessive gas: - Rest - Eat lightly - Lie on right side Follow-Up Information Follow-up with as scheduled Anesthesia Information What You Should Know You have had a procedure that required some medicine to reduce anxiety and discomfort. This treatment is called moderate sedation. After receiving the treatment, you may be sleepy, but you will be able to breathe on your own. The effects of the treatment may last for several hours. Follow these instructions along with Activity/Diet recommendations noted above: * Do NOT do anything where dizziness or clumsiness would be dangerous. * Rest quietly at home today, then you can be up and about tomorrow. * Have a responsible person stay with you the rest of today. * You may have had an I.V. today. If so, you may take the dressing off later today. Recommendations Call your doctor if: * Trouble breathing * Continuous vomiting for more than 24 hours * Temperature above 101 degrees * Severe abdominal pain or bloating * Pain not relieved by pain medicine ordered * There is increased drainage or redness from any incision * A large amount of rectal bleeding greater than 2-3 tablespoons. (If you had a polyp/s removed or have hemorrhoids, a small amount of blood - from the rectum is to be expected.) * You have any unanswered questions or concerns. IN THE EVENT OF A SERIOUS EMERGENCY, GO TO THE NEAREST EMERGENCY ROOM Your discharge instructions were prepared by provider Dale Desir. Patient Instructions Signature Page Agustin Russo Patient (or Guardian) Signature/Date: I have read and understand the instructions given to me by my caregivers. Caregiver/RN/Doctor Signature/Date: The above-named patient and/or guardian has received patient instructions on this date. + Original Patient Signature Page (only) stays with chart. Please make copy for patient.
--- NOTE | 2016-11-06 17:29 | GI REPORT ---
Procedure Date: 11/06/2016 5:11 PM Procedure: Upper GI endoscopy Indications: Acute post hemorrhagic anemia, Melena Medicines: Propofol total dose 100 mg IV, Etomidate 6 mg IV, Lidocaine 80 mg IV Complications: No immediate complications. Estimated Blood Loss: Estimated blood loss: none. Procedure: Pre-Anesthesia Assessment: - Prior to the procedure, a History and Physical was performed, and patient medications, allergies and sensitivities were reviewed. The patient's tolerance of previous anesthesia was reviewed. - The risks and benefits of the procedure and the sedation options and risks were discussed with the patient. All questions were answered and informed consent was obtained. - Prior to the procedure, a History and Physical was performed, and patient medications, allergies and sensitivities were reviewed. The patient's tolerance of previous anesthesia was reviewed. - The risks and benefits of the procedure and the sedation options and risks were discussed with the patient. All questions were answered and informed consent was obtained. After obtaining informed consent, the endoscope was passed under direct vision. Throughout the procedure, the patient's blood pressure, pulse, and oxygen saturations were monitored continuously. The upper GI endoscopy was accomplished without difficulty. The patient tolerated the procedure well. The scope was introduced through the mouth, and advanced to the second part of duodenum. The patient tolerated the procedure well. Findings: The examined esophagus was normal. Diffuse atrophic mucosa was found in the gastric body and in the gastric antrum. A 30 mm non-bleeding diverticulum was found in the duodenal bulb. One non-bleeding superficial duodenal ulcer was found in the duodenal bulb. The lesion was 4 mm in largest dimension. Impression: - Normal esophagus. - Gastric mucosal atrophy. - Non-bleeding duodenal diverticulum. - One non-bleeding duodenal ulcer. - No specimens collected. Recommendation: - Return patient to [facility] for ongoing care. Dale Desir M.D. Dale Desir MD 11/06/2016 5:28:51 PM This report has been signed electronically. Note Initiated On: 11/06/2016 5:11 PM I attest to the content of the Intraoperative Record and orders documented therein, exceptions below
--- NOTE | 2016-11-06 17:43 | Anesthesiology Progress Note ---
Anesthesia Post Op Note Date & Time Nov 06, 2016 at 17:43 Vital Signs Pain Intensity: 0.0 Vital Signs Past 12 Hours Date Time Temp Pulse Resp B/P (MAP) Pulse Ox O2 Delivery O2 Flow Rate FiO2 11/06/16 17:28 68 16 95/66 (76) 98 Room Air 11/06/16 16:25 36.5 86 18 128/68 (88) 100 Room Air 11/06/16 15:41 Room Air 11/06/16 15:00 36.3 70 18 113/68 98 Room Air 11/06/16 14:55 36.3 70 18 113/68 (83) 98 Room Air 11/06/16 12:00 Room Air 11/06/16 11:36 36.7 75 18 103/62 (76) 99 Room Air 11/06/16 08:00 Room Air 11/06/16 07:47 36.8 60 18 98/61 (73) 97 Room Air Notes Mental Status: alert / awake / arousable, participated in evaluation Pt Amnestic to Procedure: Yes Nausea / Vomiting: adequately controlled Pain: adequately controlled Airway Patency, RR, SpO2: stable & adequate BP & HR: stable & adequate Hydration State: stable & adequate Anesthetic Complications: no major complications apparent
--- NOTE | 2016-11-06 17:50 | PROGRESS NOTE ---
DATE: 11/06/2016 Patient underwent an EGD today for melena, anemia and syncope. He was found to have a normal esophagus. Stomach was atrophic. The duodenal bulb showed a large anterior wall diverticulum on the posterior wall. There was a 4 mm ulcer without any stigmata of bleeding at this time. The remainder of the duodenum was normal. IMPRESSION: The patient has a duodenal ulcer probably the site of his blood loss. No endoscopic intervention was necessary at this time. We will continue to follow the patient during his hospital stay.
[2016-11-06] MEDS: SIMVASTATIN 40 MG TAB PO SCH (20:33)
[2016-11-06] MEDS: TAMSULOSIN HCL 0.4 MG CAP PO SCH (20:33)
[2016-11-06 20:35] LABS: HEMATOCRIT 26.7 % (42-52)
[2016-11-06] MEDS: BACITRACIN/POLYMYXIN B OINT 15 GM TUBE EXT SCH (20:35)
[2016-11-07] MEDS: PANTOprazole INJ 40 MG in DEXTROSE 5% 100ML IV SCH ×3 (00:22→10:33)
[2016-11-07 01:55] LABS: HEMATOCRIT 22.4 % (42-52)
[2016-11-07 03:20] VITALS: BP 100/59; PULSE 68; TEMP 36.8; O2SAT 97
[2016-11-07] MEDS ORDERED: NURSING VERBAL MED ORDER ONE ×2 (07:15)
[2016-11-07] MEDS: SODIUM CHLORIDE 0.9% 1000ML 1,000 ML IV SCH (07:20)
[2016-11-07 07:54] VITALS: BP 111/65; PULSE 65; TEMP 36.8; O2SAT 98
[2016-11-07 08:18] LABS: HEMATOCRIT 21.7 % (42-52); HEMATOCRIT 22.2 % (42-52); MEAN CELL VOLUME 94.5 fL (80-100); MEAN CORPUSCULAR HEMOGLOBIN 32.3 pg (25-34); MEAN CORPUSCULAR HGB CONC 34.2 g/dl (32-36); RED BLOOD COUNT 2.35 M/uL (4.7-6.1); WHITE BLOOD COUNT 4.03 K/uL (4.8-10.8)
[2016-11-07 08:22] LABS: MEAN PLATELET VOLUME 9.4 fL (7.4-10.4); PLATELET COUNT 85 K/uL (130-400)
[2016-11-07] MEDS: AMOXICILLIN/CLAVULANATE TAB 875 MG TAB PO SCH ×2 (08:28→17:22)
[2016-11-07] MEDS: BACITRACIN/POLYMYXIN B OINT 15 GM TUBE EXT SCH ×2 (08:28→21:02)
[2016-11-07] MEDS: RANITIDINE HCL 150 MG TAB PO SCH ×2 (08:29→21:03)
[2016-11-07 08:39] LABS: BASO % 0.5 %; BASO ABS # 0.02 K/uL (0-0.2); COMPLETE YES; IG% 2.7 %; LYMPH % 21.8 %; LYMPH ABS # 0.88 K/uL (1.2-3.4); MONO % 10.2 %; NEUT % 60.8 %
[2016-11-07 08:52] LABS: BUN/CREATININE RATIO 17.5 (10-20); CALCIUM 7.6 mg/dl (8.5-10.1); CREATININE 1.2 mg/dl (0.60-1.40); POTASSIUM 3.8 mmol/L (3.5-5.1)
--- NOTE | 2016-11-07 12:17 | Urology Consultation ---
History General Date of Service: Nov 07, 2016. Chief Complaint: gross hematuria Primary Care Physician: Geraldo Villalta M.D. Pt seen a urologist before?: Yes (Dr. Elder) If yes, why?: prostate cancer History of Present Illness 86 yo male admitted s/p fall and melena. consulted for gross hematuria. The pt reports gross hematuria with some dysuria 2-3 days ago. Symptoms have since resolved. He has a hx of prostate cancer and BPH for which he has seen Dr. Elder in the past. Latest PSA was 12.1 yesterday. Increased from 10.2 12-07-15. He sees Dr. Rubin for his prostate cancer and is managed with Lupron injections. CT scan this admission negative for hydro or obstructing stone.Stable bilateral renal lesions likely consistent with cysts noted. He is noted to be anemic today with an H&H of 7.6 and 22.2. EGD yesterday showing duodenal ulcer as source for bleeding. Imaging Imaging: CT Laboratory Last 24 Hours Test 11/06/16 12:45 11/06/16 14:01 11/06/16 20:24 11/07/16 01:40 Urine Color YELLOW Urine Appearance CLEAR Urine pH 5.0 Urine Specific [place] 1.019 Urine Protein NEG Urine Glucose (UA) NEG Urine Ketones NEG Urine Occult Blood 3+ Urine Nitrite NEG Urine Bilirubin NEG Urine Urobilinogen NEG Urine Leukocyte Esterase NEG Urine WBC (Auto) 1-5 /hpf Urine RBC (Auto) >30 /hpf Urine Hyaline Casts (Auto) 1-5 /lpf Urine Epithelial Cells (Auto) 5-10 /lpf Urine Bacteria (Auto) NEG Hemoglobin 9.7 g/dL 9.0 g/dL 7.6 g/dL Hematocrit 28.9 % 26.7 % 22.4 % Test 11/07/16 08:07 White Blood Count 4.03 K/uL Red Blood Count 2.35 M/uL Hemoglobin 7.6 g/dL Hematocrit 22.2 % Mean Corpuscular Volume 94.5 fL Mean Corpuscular Hemoglobin 32.3 pg Mean Corpuscular Hemoglobin Concent 34.2 g/dl Platelet Count 85 K/uL Mean Platelet Volume 9.4 fL Neutrophils (%) (Auto) 60.8 % Lymphocytes (%) (Auto) 21.8 % Monocytes (%) (Auto) 10.2 % Eosinophils (%) (Auto) 4.0 % Basophils (%) (Auto) 0.5 % Neutrophils # (Auto) 2.45 K/uL Lymphocytes # (Auto) 0.88 K/uL Monocytes # (Auto) 0.41 K/uL Eosinophils # (Auto) 0.16 K/uL Basophils # (Auto) 0.02 K/uL RDW Standard Deviation 45.9 fL RDW Coefficient of Variation 13.6 % Immature Granulocyte % (Auto) 2.7 % Immature Granulocyte # (Auto) 0.11 K/uL Red Blood Cell Morphology Unremarkable Sodium Level 144 mmol/L Potassium Level 3.8 mmol/L Chloride Level 115 mmol/L Carbon Dioxide Level 19 mmol/L Anion Gap 10.0 mmol/L Blood Urea Nitrogen 21 mg/dl Creatinine 1.20 mg/dl Est Creatinine Clear Calc Drug Dose 42.7 ml/min Estimated GFR () 62.2 Estimated GFR (Non- 53.7 BUN/Creatinine Ratio 17.5 Random Glucose 101 mg/dl Calcium Level 7.6 mg/dl Problem List Medical Problems: (1) Facial fracture Status: Acute Past History BPH, cancer - prostate Past Surgical History: spinal surgery Family History Liver and pancreatic cancer Social History Smoking: non-smoker Alcohol: never Drug use: none Marital status: Housing status: lives with family Occupation status: retired Immunizations History of Influenza Vaccine: Unknown History of Tetanus Vaccine?: Unknown History of Pneumococcal: Unknown History of Hepatitis B Vaccine: Unknown History of MDRO No Allergies Coded Allergies: No Known Allergies (Unverified , 11/04/16) Medications Home Medications: Home Meds and Scripts Medications Dose Route/Sig Max Daily Dose Days Date Category Dose Instructions Tamsulosin HCl 0.4 Mg Cap 0.4 Mg PO QPM 10/08/14 Reported AFTER EVENING MEAL Osteo Bi-Flex Triple Stre (Misc Natural Products) 1 Tab Tab 1 Tab PO DAILY 05/14/12 Reported Tenormin (Atenolol) 25 Mg Tab 25 Mg PO DAILY 05/14/12 Reported Zocor (Simvastatin) 40 Mg Tab 40 Mg PO QPM 05/14/12 Reported Aspir-81 (Aspirin) 81 Mg Tab 1 Tab PO DAILY 05/14/12 Reported Inpatient Medications: Current Inpatient Medications Medications (Trade) Dose Ordered Sig/William Route Start Time Stop Time Status Last Admin Dose Admin Acetaminophen (Tylenol Tab) 650 mg Q4H PRN PO 11/04/16 20:15 12/04/16 20:14 Al Hydrox/Mg Hydrox/Simethicone (Maalox Max Susp) 15 ml Q4H PRN PO 11/04/16 20:15 12/04/16 20:14 Magnesium Hydroxide (Milk Of Magnesia Susp) 30 ml Q12H PRN PO 11/04/16 20:15 12/04/16 20:14 Ondansetron HCl (Zofran Inj) 4 mg Q6H PRN IV 11/04/16 20:15 12/04/16 20:14 Nitroglycerin (Nitrostat Tab) 0.4 mg UD PRN SL 11/04/16 20:15 12/04/16 20:14 Polyethylene (Miralax Powder Packet) 17 gm DAILY PRN PO 11/04/16 20:15 12/04/16 20:14 Atenolol (Tenormin Tab) 25 mg DAILY PO 11/05/16 09:00 12/05/16 08:59 Future Hold 11/05/16 08:05 25 MG Simvastatin (Zocor Tab) 40 mg QPM PO 11/04/16 21:00 12/04/16 20:59 11/06/16 20:33 40 MG Tamsulosin HCl (Flomax Cap) 0.4 mg QPM PO 11/04/16 21:00 12/04/16 20:59 11/06/16 20:33 0.4 MG Ranitidine HCl (zANTac TAB) 150 mg BID PO 11/04/16 21:00 12/04/16 20:59 11/07/16 08:29 150 MG Amoxicillin/ Clavulanate Potassium (Augmentin Tab) 875 mg BIDM PO 11/05/16 08:00 11/15/16 07:59 11/07/16 08:28 875 MG Pantoprazole Sodium 40 mg/ Dextrose 100 ml @ 20 mls/hr Q5H IV 11/04/16 23:00 12/04/16 22:59 11/07/16 10:33 20 MLS/HR Ioversol (Optiray 320) 100 ml UD PRN IV 11/04/16 22:15 11/08/16 22:14 Sodium Chloride 1,000 ml @ 60 mls/hr [id number] IV 11/05/16 10:30 12/05/16 10:29 Future hold 11/07/16 07:20 60 MLS/HR Bacitracin/ Polymyxin B Sulfate (Polysporin Oint) 1 appln BID EXT 11/06/16 21:00 12/06/16 20:59 11/07/16 08:28 1 APPLN Review of Systems Review of Systems Constitutional: No fever, No chills Eyes: No double vision Neurological: No dizzy Endocrine: No excessive thirst Gastrointestinal: No abdominal pain, No nausea, No vomiting Cardiovascular: No chest pain Respiratory: No shortness of breath Skin: No rash Musculoskeletal: + arthritis Male : No painful urination, No blood in urine Physical Exam Vital Signs: Vital Signs Past 12 Hours Date Time Temp Pulse Resp B/P (MAP) Pulse Ox O2 Delivery O2 Flow Rate FiO2 11/07/16 11:25 Room Air 11/07/16 07:54 36.8 65 18 111/65 (80) 98 Room Air 11/07/16 07:44 Room Air 11/07/16 04:00 Room Air 11/07/16 03:20 36.8 68 18 100/59 (73) 97 Room Air 11/07/16 00:00 Room Air Physical Exam: General Appearance: no apparent distress Eyes: bilateral eyes normal inspection ENT: hearing grossly normal Neck: no JVD Respiratory/Chest: no respiratory distress, no accessory muscle use Cardiovascular: no JVD Extremities: normal inspection Neurologic/Psychiatric: alert, normal mood/affect, oriented x 3 Skin: + pertinent finding (ecchymosis/old abrasion noted inferior and lateral to right eye) Assessment & Plan Assessment & Plan A/P: Gross hematuria, prostate cancer-rising PSA Hematuria resolved. Will send a UC&S and cytology today. No findings on CT to account for gross hematuria. The pt will need an outpatient cysto with Dr. Fraga to complete evaluation. F/u with Dr. Rubin for prostate cancer scheduled on 12/26/16. Consider consulting oncology while inpatient d/t rising PSA despite Lupron. Thanks for the consult. No further management at this time. Recall PRN issues.
[2016-11-07 14:26] LABS: HEMATOCRIT 22.7 % (42-52)
[2016-11-07 14:54] VITALS: BP_SYST 105; BP_SYST 110; BP_SYST 120; BP_DIAS 57; BP_DIAS 59; BP_DIAS 64; PULSE 68; PULSE 81; TEMP 36.6; O2SAT 99
--- NOTE | 2016-11-07 19:11 | GASTROENTEROLOGY PROGRESS NOTE ---
DATE: 11/07/2016 SUBJECTIVE: The patient is feeling well and ambulating in the hallways. The patient He has not had a bowel movement, but has begun to eat food. He had upper endoscopy yesterday, which revealed a duodenal ulcer and a sizable duodenal diverticulum. The patient does not use NSAIDs. The patient was admitted for, n part, with an acute GI hemorrhage. LABORATORY STUDIES: Today, white count of 4.0 this morning and hemoglobin was 7.6. This trended throughout the day and is currently 8.0. Platelet counts are 85,000. No description of melena or bright red blood per rectum. There is no hematemesis or coffee-ground emesis. The patient has not received any packed red blood cells since admission. CURRENT MEDICATIONS: Pantoprazole 40 mg p.o. b.i.d., Augmentin b.i.d., simvastatin, Flomax, ranitidine, milk of magnesia p.r.n., Maalox p.r.n., and Zofran p.r.n. REVIEW OF SYSTEMS: Otherwise noncontributory based on 13-point exam. The patient does not use NSAIDs at home. OBJECTIVE: VITAL SIGNS: This afternoon, blood pressure is 105/64, heart rate 81, sats 99% on room air, afebrile at 36.6, and respirations 18. GENERAL: The patient is awake, alert and oriented x3. HEENT: He has an evidence of scab forming on the right orbit area and right facial area due to his fall. Sclerae are anicteric. Conjunctivae moist. HEART: Normal S1 and S2. ABDOMEN: Soft, flat, nontender, and nondistended. Good bowel sounds. LUNGS: Clear to auscultation. EXTREMITIES: Without edema. RECTAL: Deferred. The patient with melena and anemia with the fall. There was a duodenal ulcer identified on EGD yesterday by Dr. Desir. 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 Would continue PPI 40 mg twice daily, pantoprazole for 12 weeks and will obtain a stool sample for H. pylori, although this may be somewhat limited because the patient is on Augmentin. The patient has had a colonoscopy approximately 8 years ago and did not recall that there were any abnormal findings. At some point, particularly if hemoglobin remains a problem or there is any evidence of ongoing GI blood loss, then a colonoscopy would be prudent. If the patient is discharged, this can be arranged as an outpatient. If there is anticipation that the patient will remain in the hospital for several more days, then we can arrange colonoscopy during his admission. We will follow with you. Follow hemoglobin serially. The patient's diet is being advanced. BRIAN
[2016-11-07 19:42] VITALS: BP 132/72; PULSE 81; TEMP 36.2; O2SAT 97
[2016-11-07] MEDS: SODIUM CHLORIDE 0.65% NA SOLN 45 ML (OCEAN) SCH (21:00)
[2016-11-07] MEDS: SIMVASTATIN 40 MG TAB PO SCH (21:03)
[2016-11-07] MEDS: PANTOprazole SOD 40 MG TAB PO SCH (21:03)
[2016-11-07] MEDS: TAMSULOSIN HCL 0.4 MG CAP PO SCH (21:04)
--- NOTE | 2016-11-07 22:17 | Family Medicine Progress Note ---
Progress Note Date of Service Nov 07, 2016. Subjective Pt evaluation today including: conversation w/ patient, conversation w/ family , physical exam, chart review, lab review, review of inpatient medication list Pain: No pain PO Intake: tolerating diet Voiding: no voiding problems Patient resting comfortably with daughter at side. Reports no pain, no ongoing hematuria. Has not passed stool while in hospital to determine if any melena present. Constitutional: No fever, No chills, No sweats, No weight loss, No weakness , No fatigue ENT: No sore throat, No trouble swallowing Respiratory: No cough, No sputum, No wheezing, No shortness of breath, No dyspnea on exertion Cardiovascular: No chest pain, No orthopnea, No PND, No edema Abdomen: + constipation, + GI bleeding, No pain, No nausea, No vomiting, No diarrhea Male : + slowing stream, No incontinence, No hematuria Neurologic: No numbness/tingling, No balance problems Heme: + abnormal bleeding/bruising Medications Current Inpatient Medications Medications (Trade) Dose Ordered Sig/William Route Start Time Stop Time Status Last Admin Dose Admin Acetaminophen (Tylenol Tab) 650 mg Q4H PRN PO 11/04/16 20:15 12/04/16 20:14 Al Hydrox/Mg Hydrox/Simethicone (Maalox Max Susp) 15 ml Q4H PRN PO 11/04/16 20:15 12/04/16 20:14 Magnesium Hydroxide (Milk Of Magnesia Susp) 30 ml Q12H PRN PO 11/04/16 20:15 12/04/16 20:14 Ondansetron HCl (Zofran Inj) 4 mg Q6H PRN IV 11/04/16 20:15 12/04/16 20:14 Nitroglycerin (Nitrostat Tab) 0.4 mg UD PRN SL 11/04/16 20:15 12/04/16 20:14 Polyethylene (Miralax Powder Packet) 17 gm DAILY PRN PO 11/04/16 20:15 12/04/16 20:14 Atenolol (Tenormin Tab) 25 mg DAILY PO 11/05/16 09:00 12/05/16 08:59 Future Hold 11/05/16 08:05 25 MG Simvastatin (Zocor Tab) 40 mg QPM PO 11/04/16 21:00 12/04/16 20:59 11/07/16 21:03 40 MG Tamsulosin HCl (Flomax Cap) 0.4 mg QPM PO 11/04/16 21:00 12/04/16 20:59 11/07/16 21:04 0.4 MG Ranitidine HCl (zANTac TAB) 150 mg BID PO 11/04/16 21:00 12/04/16 20:59 11/07/16 21:03 150 MG Amoxicillin/ Clavulanate Potassium (Augmentin Tab) 875 mg BIDM PO 11/05/16 08:00 11/15/16 07:59 11/07/16 17:22 875 MG Ioversol (Optiray 320) 100 ml UD PRN IV 11/04/16 22:15 11/08/16 22:14 Bacitracin/ Polymyxin B Sulfate (Polysporin Oint) 1 appln BID EXT 11/06/16 21:00 12/06/16 20:59 11/07/16 21:02 1 APPLN Pantoprazole Sodium (Protonix Tab) 40 mg BID PO 11/07/16 21:00 12/07/16 20:59 11/07/16 21:03 40 MG Sodium Chloride (Wirt Nasal [place]) 2 sprays TID NA 11/07/16 21:00 12/07/16 20:59 Objective Vital Signs Date Time Temp Pulse Resp B/P (MAP) Pulse Ox O2 Delivery O2 Flow Rate FiO2 11/07/16 19:42 36.2 81 18 132/72 (92) 97 Room Air 11/07/16 16:00 Room Air 11/07/16 14:54 36.6 68 18 105/64 (78) 99 Room Air 81 120/57 (78) 81 110/59 (76) 11/07/16 11:25 Room Air 11/07/16 07:54 36.8 65 18 111/65 (80) 98 Room Air 11/07/16 07:44 Room Air 11/07/16 04:00 Room Air 11/07/16 03:20 36.8 68 18 100/59 (73) 97 Room Air 11/07/16 00:00 Room Air 11/06/16 23:10 36.7 71 18 105/64 (78) 97 Room Air Physical Exam General Appearance: WD/WN, no apparent distress Eyes: PERRL, EOMI ENT: hearing grossly normal, pharynx normal Neck: supple, no JVD Respiratory/Chest: chest non-tender, lungs clear, normal breath sounds, no respiratory distress Cardiovascular: regular rate, rhythm, no edema, no JVD, no murmur Abdomen: normal bowel sounds, non tender, soft Extremities: no pedal edema Neurologic/Psychiatric: director medical surgical II-XII nml as tested, no motor/sensory deficits, alert, normal mood/affect, oriented x 3 Skin: warm/dry Laboratory Results 11/07/16 08:07 Red Blood Count 2.35, Mean Corpuscular Volume 94.5, Mean Corpuscular Hemoglobin 32.3, Mean Corpuscular Hemoglobin Concent 34.2, Mean Platelet Volume 9.4, Neutrophils (%) (Auto) 60.8, Lymphocytes (%) (Auto) 21.8, Monocytes (%) (Auto) 10.2, Eosinophils (%) (Auto) 4.0, Basophils (%) (Auto) 0.5, Neutrophils # (Auto ) 2.45, Lymphocytes # (Auto) 0.88, Monocytes # (Auto) 0.41, Eosinophils # (Auto ) 0.16, Basophils # (Auto) 0.02 11/07/16 14:13 11/07/16 08:07 Test 11/07/16 08:07 White Blood Count 4.03 K/uL (4.8-10.8) Red Blood Count 2.35 M/uL (4.7-6.1) Hemoglobin 7.6 g/dL (14.0-18.0) Hematocrit 22.2 % (42-52) Mean Corpuscular Volume 94.5 fL (80-100) Mean Corpuscular Hemoglobin 32.3 pg (25-34) Mean Corpuscular Hemoglobin Concent 34.2 g/dl (32-36) Platelet Count 85 K/uL (130-400) Mean Platelet Volume 9.4 fL (7.4-10.4) Neutrophils (%) (Auto) 60.8 % Lymphocytes (%) (Auto) 21.8 % Monocytes (%) (Auto) 10.2 % Eosinophils (%) (Auto) 4.0 % Basophils (%) (Auto) 0.5 % Neutrophils # (Auto) 2.45 K/uL (1.4-6.5) Lymphocytes # (Auto) 0.88 K/uL (1.2-3.4) Monocytes # (Auto) 0.41 K/uL (0.11-0.59) Eosinophils # (Auto) 0.16 K/uL (0-0.5) Basophils # (Auto) 0.02 K/uL (0-0.2) RDW Standard Deviation 45.9 fL (36.4-46.3) RDW Coefficient of Variation 13.6 % (11.5-14.5) Immature Granulocyte % (Auto) 2.7 % Immature Granulocyte # (Auto) 0.11 K/uL (0.00-0.02) Red Blood Cell Morphology Unremarkable Anion Gap 10.0 mmol/L (3-11) Est Creatinine Clear Calc Drug Dose 42.7 ml/min Estimated GFR () 62.2 Estimated GFR (Non- 53.7 BUN/Creatinine Ratio 17.5 (10-20) Calcium Level 7.6 mg/dl (8.5-10.1) Assessment and Plan 86 yo male presents with syncopal episode and black tarry stool the day before ( no known hx of either). Patient had received flu and pneumonia vaccines the day prior Syncope: DDx includes cardiac (including arrhythmia), anemia, ACS, electrolyte issues, acute intra-cranial event. - 23Sep CT head no acute findings. Trops x3 negative. - EKG on admit was NSR 82 with PAC's but no acute ST-T wave changes. Admitted to telemetry for further monitoring. - Mild hypotension in AM s/p admit. Held home atenolol. - Cardiac echo grossly normal, EF 60-65%, mild type 1 diastolic failure - Neuro checks per protocol. - PT & OT consults appreciated, patient for home upon DC. - Ordered orthostatic BPs. - Ok to ambulate - DCd IVF Melena: First known episode Pt denies hx of same, hematochezia, hematemesis. Hx of prostate ca, hx of peptic ulcer in 1950s and no recurrence. - Admit Hb 11.1. Recheck next AM 8.4. Have been trending 9.7-->7.5-->8.0. Will monitor. Type and Cross obtained for potential transfusion - No further acute melena overnight. Denies abd pain. Hemoccult positive. - Cut back on CBC to q12. - Will continue to monitor platelets - Pt notes prior routine colonoscopies, all normal per him, with last at age 78 (~2008). Per GI (thank you) will consider colonoscopy if Hgb continues to fall - PO zantac and switched to PO pantoprazole 40 mg BID, to be continued 12 weeks per GI - 23Sep CT a/p with contrast: No evidence of metastatic disease within the abdomen or pelvis. - H.pylori pending. Nondisplaced right orbital floor fracture & facial laceration: - ENT consult: will likely need outpatient follow up, have started saline nasal sprays - Skin laceration over right eye sutured (nylon). Will eventually need suture removal. - Started Augmentin 875mg BID PO. - Rec'd f/u with ophtho within a week. Hematuria with PMH Prostate cancer (Dr. Real): Says is managed conservatively , next outpt appt scheduled for late November. - On home Tamsulosin 0.4 mg q PM. - No further hematuria -? low platelets with hx of prostate cancer - Rechecked PSA today, up to 12 from november 2015 (10) - Post void residual today of 115 cc - Ordered BID post-void residual levels - urology consulted, appreciate recs - Consulted dr. real/heme/onc team for further workup re: prostate HLD / HTN: On home Atenolol 25mg daily and Simvastatin 40mg daily. CAD: Hx CO and stenting x 2 around 2010 ([place]) from Dr. Otto(?) - Held home ASA 81. Hyperglycemia: Glucose noted in 130's on admit. No known hx of DM. - HbA1c 5.5% DVT prophy: SCDs. No rx anticoag due to possible GI bleed. Code status: Full Dispo: on telemetry, consider switch off tele tomorrow. Hopefully home tomorrow. Resident Tracking Resident Involvement: Resident Care Provided Care Provided: Adult Hospital Medicine
[2016-11-07 23:47] VITALS: BP 127/75; PULSE 87; TEMP 36.9; O2SAT 96
[2016-11-08] VITALS: O2SAT 96
[2016-11-08 03:35] VITALS: BP 124/73; PULSE 71; TEMP 36.8; O2SAT 97
[2016-11-08 04:00] VITALS: O2SAT 96
[2016-11-08 06:50] LABS: BASO % 0.6 %; BASO ABS # 0.03 K/uL (0-0.2); EOS % 4.5 %; HEMATOCRIT 25.3 % (42-52); IG% 2.2 %; LYMPH % 22.1 %; LYMPH ABS # 1.08 K/uL (1.2-3.4); MEAN CELL VOLUME 95.8 fL (80-100); MEAN CORPUSCULAR HEMOGLOBIN 30.7 pg (25-34); NEUT % 61.6 %; PLATELET COUNT 113 K/uL (130-400); RED BLOOD COUNT 2.64 M/uL (4.7-6.1); WHITE BLOOD COUNT 4.89 K/uL (4.8-10.8)
[2016-11-08 07:13] LABS: COMPLETE YES
[2016-11-08 07:14] LABS: BUN/CREATININE RATIO 13.3 (10-20); CALCIUM 8.2 mg/dl (8.5-10.1); CREATININE 1.3 mg/dl (0.60-1.40); POTASSIUM 3.9 mmol/L (3.5-5.1)
[2016-11-08 07:23] VITALS: BP 137/74; PULSE 82; TEMP 36.7; O2SAT 96
[2016-11-08] MEDS: SODIUM CHLORIDE 0.65% NA SOLN 45 ML (OCEAN) SCH ×2 (08:14→13:58)
[2016-11-08] MEDS: PANTOprazole SOD 40 MG TAB PO SCH (08:17)
[2016-11-08] MEDS: RANITIDINE HCL 150 MG TAB PO SCH (08:17)
[2016-11-08] MEDS: BACITRACIN/POLYMYXIN B OINT 15 GM TUBE EXT SCH (08:17)
[2016-11-08] MEDS: AMOXICILLIN/CLAVULANATE TAB 875 MG TAB PO SCH (08:17)
[2016-11-08 11:27] VITALS: BP 119/73; PULSE 79; TEMP 36.6; O2SAT 98
[2016-11-08] MEDS ORDERED: POLYETHYLENE (MIRALAX) 17 GM PACK PO SCH (11:45)
[2016-11-08] MEDS ORDERED: DOCUSATE SODIUM 100 MG CAP PO SCH ×2 (11:45→21:00)
[2016-11-08] MEDS ORDERED: ZNT150 PO ×2 (14:06→14:39)
[2016-11-08] MEDS ORDERED: PRT40 PO ×2 (14:06→14:39)
[2016-11-08] MEDS ORDERED: SALI0.6510 ×2 (14:06→14:39)
[2016-11-08] MEDS ORDERED: AMOX1TAB43 PO ×2 (14:06→14:39)
--- NOTE | 2016-11-08 14:32 | Discharge Instructions ---
Discharge Instructions Date of Service Nov 08, 2016. Admission Reason for Admission: Gi Bleed,Syncope Discharge Discharge Diagnosis / Problem: Upper GI bleed Discharge Goals Goal(s): Improve disease control, Diagnostic testing, Therapeutic intervention Activity Recommendations Activity Limitations: per Instructions/Follow-up section Lifting Limitations: gradually increase as tolerated Exercise/Sports Limitations: gradually increase as tolerated Shower/Bathe: no limitations . Instructions / Follow-Up Instructions / Follow-Up You were admitted after a fall. No heart cause was found on monitoring of your heart rhythm, echocardiogram and your cardiac enzymes were normal. You should follow up with your primary care physician regarding this in 1-2 weeks. You also had an episode of melena (black tarry stool). You were placed on an IV drip to help control this bleeding. Endoscopy was performed showing a non bleeding ulcer 48 hours after being placed on this medication and appears to be the cause of your bleeding. However you should follow up with GI regarding this for consideration of a colonoscopy if persistent anemia is present. A test for a bacteria that causes ulcers is outstanding on discharge. Please repeat your lab test as mentioned below. You should continue pantoprazole and ranitidine as prescribed until follow up with your city weighmaster. You also had an episode of gross (visible) hematuria. Your PSA level has increased since previous and you should follow up with your oncologist Dr Rubin regarding this. Your platelets were also low. This is now improving on your most recent lab tests. You should follow up with your primary care physician with the lab tests as mentioned below to make sure your platelet levels normalize. You also sustained a non-displaced orbital floor fracture. We are arranging outpatient ENT (ear, nose, throat) follow up regarding this and you will be called with an appointment. You were also started on an antibiotic (Augmentin) and saline nasal sprays to reduce the risk of sinus infection due to sustaining this fracture as recommended by ENT. Please follow up with lab work provided. Complete blood count and basic metabolic panel in 2 days. These results will be sent to your primary care provider and you should follow up with Dr Villalta's office regarding this in 1-2 weeks. If fevers, chills, increased facial swelling, changes in your vision, dizziness , shortness of breath, chest pain please call your PCP office and follow up sooner or in an emergency return to the ER. Current Hospital Diet Patient's current hospital diet: AHA Diet (Heart Healthy) Discharge Diet Recommended Diet: AHA Diet (Heart Healthy) Diet Texture: Dental Soft (bite-sized) (as tolerated) Procedures Procedures Performed: EGD - please see seperate discharge instructions regarding this Pending Studies Studies pending at discharge: yes List of pending studies: H. Pylori stool antigen CBC and BMP to be taken on 11/10/16 Laboratory Results Hemoglobin A1c Test 11/05/16 08:16 Range/Units Estimated Average Glucose 111 mg/dl Hemoglobin A1c 5.5 4.5-5.6 % Medical Emergencies . Who to Call and When: Medical Emergencies: If at any time you feel your situation is an emergency, please call 911 immediately. . Non-Emergent Contact Non-Emergency issues call your: Primary Care Provider Contact Number: . . "Provider Documentation" section prepared by Dragan Horn. . VTE Core Measure Inpt VTE Proph given/why not?: SCD's, Contraindicated (UGI bleed)
[2016-11-08 14:48] VITALS: BP 119/73; PULSE 79; TEMP 36.6; O2SAT 98
--- NOTE | 2016-11-08 23:56 | Discharge Summary ---
Discharge Summary Date of Service Nov 08, 2016. Discharge Summary Admission Date: Nov 04, 2016 at 20:31 Discharge Date: Nov 08, 2016 Discharge Disposition: Home Principal Diagnosis: Melena Problems/Secondary Diagnoses: Syncope, Nondisplaced right orbital floor fracture and facial laceration, Hematuria, Hyperlipidemia, Hypertension, CAD, Hyperglycemia Immunizations: Have You Had Influenza Vaccine: Unknown History of Tetanus Vaccine?: Unknown History of Pneumococcal: Unknown History of Hepatitis B Vaccine: Unknown Procedures: Esophagogastroduodenoscopy Impression: - Normal esophagus. - Gastric mucosal atrophy. - Non-bleeding duodenal diverticulum. - One non-bleeding duodenal ulcer. - No specimens collected. Recommendation: - [facility] patient to [facility]. Consultations: Gastroenterology, Urology Medication Reconciliation New Medications: Amoxicillin & Pot Clavulanate (Amoxicillin/Clavulanate P) 1 Tab Tab 875 MG PO BIDM for 6 Days, #11 TAB Pantoprazole (Pantoprazole Sodium) 40 Mg Tab 40 MG PO BID for 30 Days, #60 TAB 1 Refill Ranitidine HCl (Ranitidine HCl) 150 Mg Tab 150 MG PO BID for 30 Days, #60 TAB 1 Refill Saline ([place] Nasal Fife) 0.65 % Spr 2 SPRAYS NA BID for 7 Days, #1 BTL 0 Refills Continued Medications: Misc Natural Products (Osteo Bi-Flex Triple Stre) 1 Tab Tab 1 TAB PO DAILY Simvastatin (Zocor) 40 Mg Tab 40 MG PO QPM, TAB Tamsulosin HCl (Tamsulosin HCl) 0.4 Mg Cap 0.4 MG PO QPM AFTER EVENING MEAL Discontinued Medications: Aspirin (Aspir-81) 81 Mg Tab 1 TAB PO DAILY Atenolol (Tenormin) 25 Mg Tab 25 MG PO DAILY, TAB Discharge Exam Review of Systems: Constitutional: No fever, No chills, No sweats, No weight loss, No weakness , No fatigue, No problem reported Eyes: No worsening of vision, No eye pain, No redness, No discharge, No diplopia, No problem reported ENT: No hearing loss, No unusual epistaxis, No nasal symptoms, No sore throat, No tinnitus, No dental problems, No trouble swallowing, No problem reported Respiratory: No cough, No sputum, No wheezing, No shortness of breath, No dyspnea on exertion, No dyspnea at rest, No hemoptysis, No problem reported Cardiovascular: No chest pain, No orthopnea, No PND, No edema, No claudication, No palpitations, No problem reported Abdomen: No pain, No nausea, No vomiting, No diarrhea, No constipation, No GI bleeding, No problem reported Musculoskeletal: No joint pain, No muscle pain, No swelling, No calf pain, No problem reported Genitourinary - Male: No hematuria, No dysuria, No urinary frequency, No urinary urgency, No urinary hesitancy, No urinary retention, No urinary incontinence, No penile discharge, No lesions, No impotence, No problem reported Neurologic: No memory loss, No paralysis, No weakness, No numbness/tingling , No vertigo, No balance problems, No problem reported Psychiatric: No depression symptoms, No anhedonism, No anxiety, No insomnia , No substance abuse, No problem reported Endocrine: No fatigue, No excessive thirst, No excessive urination, No problem reported Hematologic / Lymphatic: No abnormal bleeding/bruising, No clotting problems , No swollen lymph nodes, No night sweats, No problem reported Physical Exam: General Appearance: WD/WN, no apparent distress Eyes: normal inspection, PERRL, EOMI ENT: normal ENT inspection, pharynx normal Neck: supple, no JVD, trachea midline Respiratory/Chest: chest non-tender, lungs clear, normal breath sounds, no respiratory distress, no accessory muscle use Cardiovascular: regular rate, rhythm, no edema, no murmur Abdomen / GI: normal bowel sounds, non tender, soft Extremities: normal inspection, no calf tenderness, no pedal edema Neurologic/Psychiatric: no motor/sensory deficits, alert, normal mood/affect , normal reflexes, oriented x 3 Skin: normal color Hospital Course 86M with a PMHx of prostate cancer treated with Tamsulosin presents status post fall. The fall was unwitnessed, however a neighbor found the patient soon after. The patient does not remember the fall, the last thing he remembers is walking to his car and he remembers coming to in the chair. The patient was on his way to the hospital for black tarry stools x 1. He reported feeling light headed the evening before. At the time of the fall the temp was approx 94F and the pt states that it's possible he was dehydrated. Pt reported that his stools are usually brown. He reports a mechanical fall approximately two weeks ago, other than that no other falls. Last colonoscopy was 8 years ago - nothing remarkable. Hx of peptic ulcers 30+ years ago. Used to take intermittent Zantac for heartburn - hasn't had heartburn in many years. Syncope: DDx includes cardiac (including arrhythmia), anemia, ACS, electrolyte issues, acute intra-cranial event. - CT head negative. Trops x3 negative. EKG w/ PACs, echo normal - Mild hypotension, Recommend holding atenolol. Recommend checking blood pressures twice daily and recording levels for PCP - Cardiac echo grossly normal, EF 60-65%, mild type 1 diastolic failure - Ordered orthostatic BPs, normal response. Melena: First known episode Pt denies hx of same, hematochezia, hematemesis. - Monitored Hb: 8.1 on discharge. No further episodes of melena - Platelets had been dropping as well, discharged with bump to 113. - Recommend follow up labs for above - GI to follow as outpatient regarding need for colonoscopy - PO zantac and PO pantoprazole 40 mg BID, to be continued 12 weeks per GI - H.pylori pending. Nondisplaced right orbital floor fracture & facial laceration: - To be followed by ENT as outpatient - Skin laceration over right eye sutured (nylon). Will eventually need suture removal. - Started Augmentin 875mg BID PO. - Rec'd f/u with ophtho within a week. Hematuria with PMH Prostate cancer (Dr. Rubin): Says is managed conservatively , next outpt appt scheduled for late November. - On home Tamsulosin - Rechecked PSA today, up to 12 from november 2015 (10) - Post void residuals normal - Follow up with Dr. Rubin HLD / HTN: Discontinue Atenolol 25mg daily and continue Simvastatin 40mg daily. CAD: Hx MD and stenting x 2 around 2010 ([place]) from Dr. Otto(?) - Held home ASA 81 while in hospital Hyperglycemia: Glucose noted in 130's on admit. No known hx of DM. - HbA1c 5.5% Total Time Spent: Less than 30 minutes This includes examination of the patient, discharge planning, medication reconciliation, and communication with other providers. Discharge Instructions Please refer to the electronic Patient Visit Report (Discharge Instructions) for additional information. Additional Copies To Geraldo Villalta M.D. Resident Tracking Resident Involvement: Resident Care Provided Care Provided: [facility]
== END 2016-11-08 15:15 | disposition home or self-care (01) | DRG 378 ==
LOC: C.EDB 17:02 → C.MED 20:31 → ENRESERV 20:58
PROVIDERS: ADMIT Hospitalist; ATTEND Hospitalist
PROC: 0DJ08ZZ Inspection of Upper Intestinal Tract, Via Natural or Artificial Opening Endoscopic (ICD-10-PCS; principal; 2016-11-06 16:10)
DX: K92.1 Melena (principal); S02.31XA Fracture of orbital floor, right side, initial encounter for closed fracture; R55 Syncope and collapse; K92.2 Gastrointestinal hemorrhage, unspecified; W19.XXXA Unspecified fall, initial encounter; I10 Essential (primary) hypertension; E78.5 Hyperlipidemia, unspecified; R31.9 Hematuria, unspecified; I25.10 Atherosclerotic heart disease of native coronary artery without angina pectoris; R73.9 Hyperglycemia, unspecified; Z79.82 Long term (current) use of aspirin

== ENCOUNTER → 2016-11-29 | Outpatient (CLI) | payer OTHER ==
[~2016-11-29] MED LIST changes: +AMOX1TAB43 PO; -ASPI-232 PO; -ATEN-173 PO; +PANT40TA PO; +PRAV20TA PO; +PRT40 PO; +SALI0.6510; +ZNT150 PO; +ZNTT/150 PO
[2016-11-29 14:47] VITALS: BP 122/78; PULSE 77; TEMP 36.5; O2SAT 99
== END | disposition home or self-care (01) ==
LOC: C.ONC 14:28
PROVIDERS: ATTEND Physician Assistant Medical
DX: C61 Malignant neoplasm of prostate (principal)

== ENCOUNTER → 2016-12-21 | Day surgery (SDC) | payer OTHER ==
[2016-12-14 13:59] VITALS: Ht 182.9 cm; Wt 63.6 kg
[~2016-12-21] VITALS: Ht 182.9 cm; Wt 63.6 kg
[~2016-12-21] MED LIST changes: -AMOX1TAB43 PO; +LIDOCAINE HCL 2% 2 ML VIAL (20MG/ML) ONE; -MISCTAB88 PO; -PRAV20TA PO; +PROPOFOL IV EMULSION 10 MG/ML 20 ML VIAL IV ONE; -PRT40 PO; -SALI0.6510; -ZCRT/40 PO; -ZNT150 PO
[2016-12-21 14:42] VITALS: TEMP 36.7
--- NOTE | 2016-12-21 15:39 | Endo History and Physical ---
History & Physical Date of Service: Dec 21, 2016. Chief Complaint: Anemia Referring Physician: Geraldo Villalta History of Present Illness melena/GI bleed Past Surgical History Hx Cardiac Surgery: Yes (HEART CATH-1 STENT PLACED) Hx Internal Defibrillator: No Hx Pacemaker: No Hx Abdominal Surgery: No Hx Post-Op Nausea and Vomiting: No Hx Cancer Surgery: No Hx Thoracic Surgery: No Hx Orthopedic: Yes (LUMBAR SURGERY (NO HARDWARE)) Hx Urinary Tract Surgery: No Family History None Social History Smoking Status: Never Smoker Hx Substance Use: No Hx Alcohol Use: Yes (OCCASIONALLY) Allergies Coded Allergies: No Known Allergies (Unverified , 12/21/16) Current Medications Reported Home Medications Medications Dose Route/Sig Max Daily Dose Days Date Category Tamsulosin HCl 0.4 Mg Cap 1 Cap PO HS 12/14/16 Reported Zantac (Ranitidine HCl) 150 Mg Tab 150 Mg PO BID PRN 12/14/16 Reported Protonix (Pantoprazole) 40 Mg Tab 1 Tab PO BID 12/14/16 Reported Vital Signs Weight (Kilograms): 63.64 Height (Feet): 6 Height (Inches): 0 Date Time Temp Pulse Resp B/P (MAP) Pulse Ox O2 Delivery O2 Flow Rate FiO2 12/21/16 14:42 36.7 70 18 159/84 (109) 99 Room Air Physical Exam General Appearance: WD/WN, no apparent distress Respiratory/Chest: Auscultation: breath sounds normal Cardiovascular: Heart Auscultation: RRR Abdomen: Bowel Sounds: normal Inspection & Palpation: soft, non-distended, no tenderness, guarding & rebound Assessment and Plan colonoscopy
--- NOTE | 2016-12-21 16:24 | Discharge Instructions ---
Endoscopy Patient Instructions Date / Procedure(s) Performed Dec 21, 2016. Colonoscopy Allergy Information Coded Allergies: No Known Allergies (Unverified , 12/21/16) Discharge Date / Findings Dec 21, 2016. polyp; Medication Instructions Restart Stopped Medication(s): Reported Home Medications Medications Dose Route/Sig Max Daily Dose Days Date Category Tamsulosin HCl 0.4 Mg Cap 1 Cap PO HS 12/14/16 Reported Zantac (Ranitidine HCl) 150 Mg Tab 150 Mg PO BID PRN 12/14/16 Reported Protonix (Pantoprazole) 40 Mg Tab 1 Tab PO BID 12/14/16 Reported Reported Home Medications Medications Dose Route/Sig Max Daily Dose Days Date Category Tamsulosin HCl 0.4 Mg Cap 1 Cap PO HS 12/14/16 Reported Zantac (Ranitidine HCl) 150 Mg Tab 150 Mg PO BID PRN 12/14/16 Reported Protonix (Pantoprazole) 40 Mg Tab 1 Tab PO BID 12/14/16 Reported Provider Instructions Activity Restrictions - No exercising or heavy lifting for 24 hours. - Do not drink alcohol the day of the procedure. - Do not drive a car or operate machinery until the day after the procedure. - Do not make any important decisions or sign important papers in 24 hours after the procedure. Following Day: - Return to full activity which may include returning to work/school. Diet Start your diet with liquids and light foods (jello, soup, juice, toast). Then eat your usual diet if not nauseated. Treatment For Common After Affects For mild abdominal pain, bloating, or excessive gas: - Rest - Eat lightly - Lie on right side Follow-Up Information Follow-up with Geraldo Villalta as scheduled Anesthesia Information What You Should Know You have had a procedure that required some medicine to reduce anxiety and discomfort. This treatment is called moderate sedation. After receiving the treatment, you may be sleepy, but you will be able to breathe on your own. The effects of the treatment may last for several hours. Follow these instructions along with Activity/Diet recommendations noted above: * Do NOT do anything where dizziness or clumsiness would be dangerous. * Rest quietly at home today, then you can be up and about tomorrow. * Have a responsible person stay with you the rest of today. * You may have had an I.V. today. If so, you may take the dressing off later today. Recommendations Call your doctor if: * Trouble breathing * Continuous vomiting for more than 24 hours * Temperature above 101 degrees * Severe abdominal pain or bloating * Pain not relieved by pain medicine ordered * There is increased drainage or redness from any incision * A large amount of rectal bleeding greater than 2-3 tablespoons. (If you had a polyp/s removed or have hemorrhoids, a small amount of blood - from the rectum is to be expected.) * You have any unanswered questions or concerns. IN THE EVENT OF A SERIOUS EMERGENCY, GO TO THE NEAREST EMERGENCY ROOM Your discharge instructions were prepared by provider Enoch Ogden. Patient Instructions Signature Page Agustin Russo Patient (or Guardian) Signature/Date: I have read and understand the instructions given to me by my caregivers. Caregiver/RN/Doctor Signature/Date: The above-named patient and/or guardian has received patient instructions on this date. + Original Patient Signature Page (only) stays with chart. Please make copy for patient.
--- NOTE | 2016-12-21 16:33 | Anesthesiology Progress Note ---
Anesthesia Post Op Note Date & Time Dec 21, 2016 at 16:33 Vital Signs Pain Intensity: 0 Vital Signs Past 12 Hours Date Time Temp Pulse Resp B/P (MAP) Pulse Ox O2 Delivery O2 Flow Rate FiO2 12/21/16 16:15 80 12 108/66 (80) 98 Room Air 12/21/16 14:42 36.7 70 18 159/84 (109) 99 Room Air Notes Mental Status: alert / awake / arousable, participated in evaluation Pt Amnestic to Procedure: Yes Nausea / Vomiting: adequately controlled Pain: adequately controlled Airway Patency, RR, SpO2: stable & adequate BP & HR: stable & adequate Hydration State: stable & adequate Anesthetic Complications: no major complications apparent
[2016-12-21 16:45] VITALS: BP 149/89; PULSE 72; O2SAT 100
--- NOTE | 2016-12-21 17:09 | GI REPORT ---
Procedure Date: 12/21/2016 3:47 PM Procedure: Colonoscopy Indications: Melena, Gastrointestinal bleeding Medicines: Propofol per Anesthesia Complications: No immediate complications. Estimated blood loss: Minimal. Estimated Blood Loss: Estimated blood loss was minimal. Procedure: Pre-Anesthesia Assessment: - Prior to the procedure, a History and Physical was performed, and patient medications and allergies were reviewed. The patient's tolerance of previous anesthesia was also reviewed. The risks and benefits of the procedure and the sedation options and risks were discussed with the patient. All questions were answered, and informed consent was obtained. Prior Anticoagulants: The patient has taken no previous anticoagulant or antiplatelet agents. ASA Grade Assessment: III - A patient with severe systemic disease. After reviewing the risks and benefits, the patient was deemed in satisfactory condition to undergo the procedure. After I obtained informed consent, the scope was passed under direct vision. Throughout the procedure, the patient's blood pressure, pulse, and oxygen saturations were monitored continuously. The scope was introduced through the anus and advanced to the terminal ileum, with identification of the appendiceal orifice and IC valve. The colonoscopy was performed without difficulty. The patient tolerated the procedure well. The quality of the bowel preparation was good. Findings: The perianal and digital rectal examinations were normal. Pertinent negatives include normal sphincter tone, no palpable rectal lesions and no anal lesion or abnormality was detected. A 3 mm polyp was found in the cecum. The polyp was sessile. The polyp was removed with a cold biopsy forceps. Resection and retrieval were complete. Estimated blood loss was minimal. Verification of patient identification for the specimen was done by the physician and alarm installation technician using the patient's name and medical record number. Multiple small-mouthed diverticula were found in the entire colon. The exam was otherwise without abnormality. The terminal ileum appeared normal. The retroflexed view of the distal rectum and anal verge was normal and showed no anal or rectal abnormalities. Impression: - One 3 mm polyp in the cecum, removed with a cold biopsy forceps. Resected and retrieved. - Diverticulosis in the entire examined colon. - The examination was otherwise normal. - The examined portion of the ileum was normal. - The distal rectum and anal verge are normal on retroflexion view. Recommendation: - Discharge patient to home (ambulatory). - Resume regular diet. - Continue present medications. - Await pathology results. - Return to referring physician as previously scheduled. MD Enoch Wick MD 12/21/2016 5:09:17 PM This report has been signed electronically. Note Initiated On: 12/21/2016 3:47 PM I attest to the content of the Intraoperative Record and orders documented therein, exceptions below
== END | disposition home or self-care (01) ==
LOC: C.GI 14:06
PROVIDERS: ATTEND Internal Medicine Gastroenterology
DX: K92.1 Melena (principal); K92.2 Gastrointestinal hemorrhage, unspecified; D12.0 Benign neoplasm of cecum; K57.90 Diverticulosis of intestine, part unspecified, without perforation or abscess without bleeding; I25.2 Old myocardial infarction; Z98.890 Other specified postprocedural states; Z85.46 Personal history of malignant neoplasm of prostate

== ENCOUNTER → 2016-12-26 | Outpatient (CLI) | payer OTHER ==
[~2016-12-26] MED LIST changes: -LIDOCAINE HCL 2% 2 ML VIAL (20MG/ML) ONE; -PROPOFOL IV EMULSION 10 MG/ML 20 ML VIAL IV ONE; +RANI150T85 PO; +TAMS0.4C38 PO; -ZNTT/150 PO; +osteobiflex
[2016-12-26 14:55] VITALS: BP 113/72; PULSE 69; TEMP 36.7; O2SAT 96
== END | disposition home or self-care (01) ==
LOC: C.ONC 14:45
PROVIDERS: ATTEND Physician Assistant Medical
DX: C61 Malignant neoplasm of prostate (principal)

== ENCOUNTER → 2017-06-07 | Outpatient (CLI) | payer OTHER ==
[2017-06-07 13:22] VITALS: BP 142/86; PULSE 82; TEMP 37.1; O2SAT 96
--- NOTE | 2017-06-07 15:53 | Radiation Oncology Follow-Up ---
Radiation Oncology Follow-Up Date of Visit Jun 07, 2017. 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 Briefly he was initially seen in May 2012 with a rise in prostate-specific antigen from 5. 08/18/2009 to 8.89 in February 2012. He underwent ultrasound-guided biopsies with 3 biopsies positive in the right base for a Galindo grade of 3+4 with a [place] grade 4 comprising 5% of the tumor burden. 3 biopsies were positive from the right mid gland for a [place] grade of 3+3 thus a total of 6 of 20 biopsies were positive. His estimated gland size was between 50 and 60 g. At that time he was felt to be too large to consider prostate implant. Options were discussed including active surveillance for possible attempt to shrink his gland for consideration of prostate seed implant. The patient received a four-month Lupron injection on 06/21/2012. The patient underwent an arch study on 09/24/2012 for determining the probability of arch interference. The estimated gland volume was 45 g however the arch was tight and an implant was not recommended. On 05/01/2013 the patient underwent a repeat ultrasound-guided prostate biopsy. 2 biopsies from the right base were positive for adenocarcinoma [place] grade of 3+3. One biopsy was positive from right mid gland for [place] grade 3+3 with no Galindo 4 identified. A repeat arch study was performed on 05/22/2013 surprisingly is prostate volume was estimated at 64 g and begin his arch is appeared tight and an implant was not thought to be possible. Decision at that time was to continue with active surveillance. A repeat prostate-specific antigen following cessation of his Lupron suppression on 02/03/2014 showed a value of 9.7. This is not significantly different than his presenting prostate-specific antigen in February 2012 at 8.89. The patient however became concerned and presented to Dr. Elder's office and stated that he wanted to receive treatment. A four-month Lupron injection was given on March 05 and an arch study was scheduled for 2014. The most recent arch study showed a decrease in the volume of the prostate to 50 g. 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 I asked the patient to return today to discuss treatment options. I spent about 30 minutes in discussion with Mr. Russo. We reviewed the option of continued hormonal suppression and ultimately repeat arch studies and the possibility of a prostate seed implant at some point in the future. We also discussed the alternative option of continuing active surveillance. Given his age of 84 and his relatively low aggressive disease I suggested that he consider active surveillance. I told him that once his Lupron has worn off that we could arrange for a repeat prostate-specific antigen and follow it after that every 6 months. I indicated to him that with this follow-up schedule that we would be able to obtain a fairly good understanding of the growth rate of his cancer and based on this information determine whether to continue with active surveillance or possibly consider treatment at some point in the future. I told him that I felt it was very unlikely that he would of his prostate cancer and also very unlikely that he would have significant symptoms from progressive prostate cancer even if he were to live into his early to mid 90s. The patient felt comfortable with this decision to continue with active surveillance. With his consent therefore we contacted Dr. Elder's office and canceled the scheduled prostate seed implant from June. We will repeat his prostate-specific antigen in September and will see him in follow-up and continue with active surveillance. The patient therefore underwent a repeat prostate- specific antigen performed on 09/30/2014. This showed a prostate-specific antigen of 0.44. This undoubtedly is a persistent effect of his prostate- specific antigen suppression based on his Lupron injection. He received his most recent Lupron injection in February of this year for 4 months. Because of his age he is likely having persistent suppressive effects and thus a very responsive drop in prostate-specific antigen. Overall he continues to do extremely well. His AUA score remains excellent at 7. His EPIC-CP score was also excellent at 9. He denies any other bowel symptoms. He remains active and is feeling great with no significant symptoms of hormonal suppression. Interim History Following his last visit. Decision was to continue with active surveillance. He is on Proscar. He had a recheck PSA today at [facility]. That was found to be 14.00. His PSA May 29, 2016 was 10.30. The PSAs were reviewed. There was a decrease in the level with the use of Lupron. He had 2 previous Lupron injections. He had an injection June 21, 2012. He had another injection March 05, 2014. Today he gave an AUA score of 8. He completed and expanded prostate cancer index composite for clinical practice and gave a score of 0 of 12 and urinary incontinence symptoms. He gave a score of 1 of 12 and urinary irritation symptoms. He gave a score of 0 12 in bowel symptoms. He gave a score of 5 of 12 in sexual symptoms. He did not complete the hormonal vitality questions. His total was 6 of 48. Allergies Coded Allergies: No Known Allergies (Unverified , 12/21/16) Home Medications Scheduled Ranitidine (Zantac), 150 MG PO HS Tamsulosin Hcl (Flomax), 1 CAP PO DAILY Miscellaneous Medications [osteobiflex] Review of Systems Gastrointestinal: Symptoms: WNL Oral: Symptoms: No Problems Respiratory: Symptoms: WNL Urinary: Symptoms: WNL Comments: "I don't take my flomax all the time, it doesn't make any difference Skin: Symptoms: No Problems Physical Exam Vital Signs Date Time Temp Pulse Resp B/P (MAP) Pulse Ox O2 Delivery O2 Flow Rate FiO2 06/07/17 13:22 37.1 82 18 142/86 96 Fatigue: None General Appearance: no apparent distress Eyes: normal inspection, EOMI ENT: normal ENT inspection, hearing grossly normal Respiratory/Chest: lungs clear, no respiratory distress, no accessory muscle use Cardiovascular: regular rate, rhythm, no gallop, no murmur Abdomen: non tender, soft, no organomegaly Extremities: no pedal edema Neurologic/Psychiatric: no motor/sensory deficits, alert, normal mood/affect Skin: warm/dry Pain Management Patient Reports Pain: No Pain Location: None Patient Preferred Pain Scale: 0 - 10 Initial Pain Intensity: 0.0 Pain Management Plan He denies pain therefore requires no pain management. Laboratory Laboratory Results: were reviewed Laboratory Comments: Reviewed in the interim history Pathology Pathology Results: were reviewed, and pertinent findings noted in HPI Imaging Imaging Studies: not applicable Assessment & Plan (Attending) Mr. Russo has a favorable intermediate risk prostate cancer which we have been following with active surveillance for many years. His most recent prior PSA on May 29, 2016 was 10.3. This was recently repeated on June 07, 2017. The PSA was now of 14. I entered this information into a program to calculate the doubling time. The doubling time was 3.06 years. I reviewed this data with the patient and told him I felt it was likely consistent with what we would anticipated given the fact that his most recent Galindo score was 3+4. The patient is presently 87 years old and although he remains in excellent health his overall survival is somewhat limited. According to Social Security life tables average survival of an 89-year-old is 4-1/2 years. Even for excellent health this would increase it to 6-1/2-7 years. This represents in general to doubling times. I felt it was unlikely that given this amount of time the patient would develop metastatic and/or symptomatic disease. The patient continues to be comfortable with the idea of active surveillance. We will continue to monitor his PSA. I indicated that I would present his case at our cancer conference this Sunday which will be attended by urology and ask if they would suggest any different approach. The major question would be if and when to intervene with the initiation of hormonal suppression. Whether that would depend on a certain PSA level or only when the patient becomes symptomatic or different approaches that have been used in the past. My preference would not to wait until the patient becomes symptomatic but possibly consider intervening at some predetermined PSA value. I told the patient that I would contact him with the recommendations from our cancer conference. Otherwise we will continue to follow him and will continue to repeat the PSA and see him on an annual basis unless recommended otherwise. Thank you for allowing us to participate in the care of this patient. This chart was completed in part utilizing [employer] Speech Voice Recognition software. Attempts were made to minimize the grammatical errors, random word insertions, pronoun errors and incomplete sentences. Any formal questions or concerns about the content, text or information contained within the body of this dictation should be directly addressed to the provider for clarification. Vince Rubin MD Department of Radiation Oncology [facility] Total Time In Follow-Up I spent 15 minutes speaking to the patient in performing examination. I spent 15 minutes reviewing information and completing this note. [place] Total Time (Attending) In Follow-Up I spent over 30 minutes in discussion of treatment options with this delightful patient and 5 minutes reviewing his chart and in preparation of this document. EFREN Copy To Geraldo Villalta M.D.
== END | disposition home or self-care (01) ==
LOC: C.ONC 13:06
PROVIDERS: ATTEND Physician Assistant Medical
DX: Z08 Encounter for follow-up examination after completed treatment for malignant neoplasm (principal); Z85.46 Personal history of malignant neoplasm of prostate

== ENCOUNTER → 2017-06-19 | Outpatient (CLI) | payer OTHER ==
[~2017-06-19] MED LIST changes: -FLM4 PO; +OPTIRAY 320 IV PRN; -PANT40TA PO
--- NOTE | 2017-06-19 13:49 | DIAGNOSTIC IMAGING REPORT ---
ABD/PELVIS IV AND ORAL CONT CT DOSE: 368.14 mGy.cm HISTORY: Prostate carcinoma 06/18/17 1218 CREA 1.33 TECHNIQUE: Multiaxial CT images of the abdomen and pelvis were performed following the use of intravenous and oral contrast. A dose lowering technique was utilized adhering to the principles of ALARA. COMPARISON STUDY: 11/04/2016 FINDINGS: Lung bases remain clear. Liver and spleen are uniform throughout. No evidence for gallbladder distention. Large stable left renal cysts with stable smaller right renal cyst. No evidence for renal hydronephrosis. Hyperplastic somewhat nodular changes of the adrenal glands considered stable. These most likely represent small adenomas. Nonobstructive bowel pattern. Chronic colonic diverticulosis. No evidence for acute diverticulitis. Moderate persistent bladder wall thickening. Moderate prostatic enlargement. Moderate degenerative change of the lumbar spine with no well-defined lytic or blastic process. IMPRESSION: 1. Stable CT evaluation of the abdomen and pelvis with no change from the prior study. 2. Stable bilateral renal cysts, chronic colonic diverticulosis, and moderate prostate enlargement. 3. No evidence for metastatic disease. The above report was generated using voice recognition software. It may contain grammatical, syntax or spelling errors. Electronically signed by: Ridge Polk M.D. 06/19/2017 1:48 PM Dictated Date/Time: 06/19/2017 1:43 PM
--- NOTE | 2017-06-19 14:34 | DIAGNOSTIC IMAGING REPORT ---
BONE SCAN WHOLE BODY CLINICAL HISTORY: 87 years-old Male presenting with PROSTATE CA. TECHNIQUE: Planar anterior and posterior imaging of the whole body was performed 3 hours following the intravenous administration of 26.0 mCi Tc-99m MDP. COMPARISON: 04/16/[address] from 06/19/2017. FINDINGS: Focal radiotracer uptake at the first left anterior rib as well as the anterior left sixth rib. No recent anatomic imaging of the first rib is available for comparison, however, in correlating to chest CT performed earlier today, a healing rib fracture is noted at the anterior left sixth rib. No sclerotic or destructive osseous lesion is evident on the CT scan at the anterior left sixth rib. Mild focal uptake at the first left carpometacarpal articulation likely degenerative in etiology. IMPRESSION: 1. Findings most suggestive of acute to subacute rib fractures, although no anatomic imaging is available of the first rib. A noncontrast chest CT could be obtained if there is clinical concern. Electronically signed by: Ashkan Lynn M.D. 06/19/2017 2:32 PM Dictated Date/Time: 06/19/2017 2:29 PM
== END | disposition home or self-care (01) ==
LOC: C.NUCL 11:12
PROVIDERS: ATTEND Radiology Radiation Oncology
DX: Q61.02 Congenital multiple renal cysts (principal); K57.30 Diverticulosis of large intestine without perforation or abscess without bleeding; C61 Malignant neoplasm of prostate